=== PATIENT | female | born 1975 | race Caucasian/White ===

== ENCOUNTER 2017-02-10 15:07 | Outpatient (POV) | payer OTHER, SELFPAY | END 2017-02-10 16:20 | disposition home or self-care (01) | PROVIDERS: Visit Provider Podiatrist | DX: M72.2 Plantar fascial fibromatosis (principal); M76.62 Achilles tendinitis, left leg; M25.572 Pain in left ankle and joints of left foot | CPT/HCPCS: 99202 ==

== ENCOUNTER 2017-03-03 15:26 | Outpatient (POV) | payer OTHER, SELFPAY | END 2017-03-03 15:59 | disposition home or self-care (01) | PROVIDERS: Visit Provider Podiatrist | DX: M72.2 Plantar fascial fibromatosis (principal); M76.62 Achilles tendinitis, left leg | CPT/HCPCS: 20550; 99212; J1100; J3301 ==

== ENCOUNTER → 2017-06-15 07:02 | Outpatient (CLI) | payer OTHER, SELFPAY ==
[2017-06-15 08:21] LABS: Albumin Level 3.7 gm/dL (3.4-5.0); Anion Gap 11.8 mEq/L (5-15); Blood Urea Nitrogen 12 mg/dL (7-18); Calcium 8.9 mg/dL (8.5-10.1); Carbon Dioxide 29 mmol/L (21.0-32.0); Chloride 103 mmol/L (98-107); Creatinine,Serum 0.65 mg/dL (0.55-1.02); Estimated Glomerular Filt Rate 100 ml/min (>60); GFR (African American) 121 ML/MIN (>60); Glucose 96 mg/dL (74-106); Potassium 3.8 mmoL/L (3.5-5.1); Sodium 140 mmol/L (136-145)
[2017-06-15 08:47] LABS: Alanine Aminotransferase 45 U/L (12-78); Albumin/Globulin Ratio 1.1 (1.1-1.8); Alkaline Phosphatase 83 U/L (46-116); Aspartate Amino Transferase 27 U/L (15-37); Bilirubin,Total 0.2 mg/dL (0.2-1.0); Cholesterol 236 mg/dL (140-200); Free T4 (Free Thyroxine) 0.79 ng/dl (0.76-1.46); Globulin 3.5 gm/dl (1.3-3.2); HDL Cholesterol 78 mg/dL (29-89); LDL Cholesterol 142 mg/dL (0-130); Thyroid Stimulating Hormone 1.85 uIU/ml (0.358-3.740); Total Protein,Serum 7.2 gm/dL (6.4-8.2); Triglycerides 82 mg/dL (30-200); VLDL Cholesterol 16 mg/dL (0-40)
[2017-06-15 08:53] LABS: Basophils % 0.7 % (0.1-2.0); Eosinophils # 0.4 K/mm3 (0.0-0.4); Eosinophils % 8.1 % (0.1-12.0); Hematocrit 48.7 % (37.0-47.0); Lymphocytes # 0.8 K/mm3 (0.7-4.5); Mean Corpuscular HGB Conc 30.9 g/dL (31.8-35.4); Mean Corpuscular Volume 93.9 fl (81-99); Mean Platelet Volume 8.1 fl (7.4-10.4); Monocytes # 0.4 K/mm3 (0.1-1.0); Monocytes % 7.1 % (1.7-9.3); Neutrophils # 3.6 K/mm3 (1.8-7.8); Neutrophils % 68.1 % (37.0-80.0); Platelet Count 280 K/mm3 (142-424); Red Blood Count 5.19 M/mm3 (4.20-5.40); Red Cell Distribution Width 13.1 % (11.5-17.5); White Blood Count 5.2 K/mm3 (4.8-10.8)
[2017-06-15 10:02] LABS: Erythrocyte Sedimentation Rate 9 mm/hr (0-20)
[2017-06-16 15:40] LABS: Estradiol 93.9 pg/mL (.); FSH 8.6 mIU/mL (.); LH 3.8 mIU/mL (.); Vitamin B12 601 pg/mL (232-1245)
== END ==
PROVIDERS: Visit Provider Nurse Practitioner Family
DX: E03.9 Hypothyroidism, unspecified (principal); E78.5 Hyperlipidemia, unspecified; E53.8 Deficiency of other specified B group vitamins; E55.9 Vitamin D deficiency, unspecified; R53.81 Other malaise; M25.50 Pain in unspecified joint; R23.2 Flushing
CPT/HCPCS: 36415; 80053; 80061; 82607; 82652; 82670; 83001; 83002; 84439; 84443; 85025; 85651

== ENCOUNTER 2017-07-28 14:50 | Outpatient (CLI) | payer OTHER, SELFPAY ==
[2017-07-28 15:10] VITALS: BP 125/76; PULSE 87; RESP 18; TEMP 37.1; O2SAT 97
[2017-07-28 15:40] VITALS: BP 121/65; PULSE 84; RESP 18
[2017-07-28 16:00] VITALS: BP 125/76; PULSE 87; RESP 18
== END 2017-07-28 16:00 | disposition home or self-care (01) ==
PROVIDERS: PCP Internal Medicine Adolescent Medicine; Visit Provider Psychiatry & Neurology Clinical Neurophysiology
DX: G35 Multiple sclerosis (principal)
CPT/HCPCS: 96365

== ENCOUNTER 2017-07-29 13:05 | Outpatient (CLI) | payer OTHER, SELFPAY ==
[2017-07-29 13:48] VITALS: BP 135/79; PULSE 61; RESP 18
[2017-07-29 13:50] VITALS: BP 122/75; PULSE 57; RESP 18
[2017-07-29 14:20] VITALS: BP 114/67; PULSE 59; RESP 18
== END 2017-07-29 13:48 | disposition home or self-care (01) ==
LOC: INF 13:40
PROVIDERS: PCP Internal Medicine Adolescent Medicine; Visit Provider Psychiatry & Neurology Clinical Neurophysiology
DX: G35 Multiple sclerosis (principal)
CPT/HCPCS: 96365; 96375; J2405

== ENCOUNTER 2017-07-30 12:11 | Outpatient (CLI) | payer OTHER, SELFPAY ==
[2017-07-30 12:35] VITALS: BP 121/78; PULSE 66; RESP 18; TEMP 36.6; O2SAT 97
[2017-07-30 13:00] VITALS: BP 136/69; PULSE 57; RESP 18
[2017-07-30 13:20] VITALS: BP 140/77; PULSE 72; RESP 18
== END 2017-07-30 13:20 | disposition home or self-care (01) ==
LOC: INF 12:11
PROVIDERS: PCP Internal Medicine Adolescent Medicine; Visit Provider Psychiatry & Neurology Clinical Neurophysiology
DX: G35 Multiple sclerosis (principal)
CPT/HCPCS: 96365

== ENCOUNTER → 2018-02-15 16:52 | Outpatient (CLI) | payer OTHER, SELFPAY ==
[2018-02-15 18:12] LABS: Anion Gap 15.1 mEq/L (5-15); Blood Urea Nitrogen 13 mg/dL (7-18); Calcium 8.8 mg/dL (8.5-10.1); Carbon Dioxide 25 mmol/L (21.0-32.0); Chloride 104 mmol/L (98-107); Creatinine,Serum 0.78 mg/dL (0.55-1.02); Estimated Glomerular Filt Rate 81 ml/min (>60); GFR (African American) 98 ML/MIN (>60); Glucose 110 mg/dL (74-106); Potassium 4.1 mmoL/L (3.5-5.1); Sodium 140 mmol/L (136-145); Thyroid Stimulating Hormone 0.91 uIU/ml (0.358-3.740)
[2018-02-17 14:20] LABS: Vitamin B12 448 pg/mL (232-1245); Vitamin D 25 Hydroxy 37.6 ng/mL (30.0-100.0)
== END ==
PROVIDERS: Visit Provider Nurse Practitioner Family
DX: E03.9 Hypothyroidism, unspecified (principal); E53.8 Deficiency of other specified B group vitamins; E55.9 Vitamin D deficiency, unspecified
CPT/HCPCS: 36415; 80048; 82607; 82652; 84439; 84443

== ENCOUNTER 2018-11-18 15:25 | Outpatient (CLI) | payer OTHER, SELFPAY ==
[2018-11-18 15:52] VITALS: BP 140/81; PULSE 86; RESP 20; TEMP 36.8; O2SAT 99
[2018-11-18 16:22] VITALS: BP 137/84; PULSE 81; RESP 20; O2SAT 99
== END 2018-11-18 16:30 | disposition home or self-care (01) ==
LOC: INF 15:35
PROVIDERS: Visit Provider Psychiatry & Neurology Clinical Neurophysiology
DX: G35 Multiple sclerosis (principal)
CPT/HCPCS: 96365

== ENCOUNTER 2018-11-19 15:25 | Outpatient (CLI) | payer OTHER, SELFPAY ==
[2018-11-19 15:45] VITALS: BP 132/79; PULSE 93; RESP 20; O2SAT 99
[2018-11-19 16:20] VITALS: BP 137/86; PULSE 93; RESP 18
== END 2018-11-19 16:30 | disposition home or self-care (01) ==
LOC: INF 15:32
PROVIDERS: Visit Provider Psychiatry & Neurology Clinical Neurophysiology
DX: G35 Multiple sclerosis (principal)
CPT/HCPCS: 96365

== ENCOUNTER → 2018-11-20 09:28 | Outpatient (CLI) | payer OTHER, SELFPAY ==
[2018-11-20 09:55] VITALS: BP 145/85; PULSE 78; RESP 18; TEMP 36.9; O2SAT 98
[2018-11-20 10:49] VITALS: BP 145/80; PULSE 62; RESP 18; TEMP 36.9; O2SAT 98
== END ==
PROVIDERS: PCP Internal Medicine Adolescent Medicine; Visit Provider Psychiatry & Neurology Clinical Neurophysiology
DX: G35 Multiple sclerosis (principal)
CPT/HCPCS: 96365; G0463

== ENCOUNTER → 2019-08-25 11:57 | Outpatient (CLI) | payer OTHER, SELFPAY ==
[2019-08-25 12:27] LABS: Basophils # 0.1 K/mm3 (0-0.2); Basophils % 1.5 % (0.1-2.0); Eosinophils # 0.5 K/mm3 (0.0-0.4); Hematocrit 44.4 % (37.0-47.0); Hemoglobin 13.8 g/dL (12.2-16.2); Lymphocytes # 0.6 K/mm3 (0.7-4.5); Lymphocytes % 10.5 % (10-50); Mean Corpuscular HGB Conc 31.1 g/dL (31.8-35.4); Mean Corpuscular Hemoglobin 30.1 pg (27.0-31.2); Mean Corpuscular Volume 96.8 fl (81-99); Mean Platelet Volume 7.4 fl (7.4-10.4); Monocytes # 0.4 K/mm3 (0.1-1.0); Monocytes % 6.3 % (1.7-9.3); Neutrophils # 4.1 K/mm3 (1.8-7.8); Neutrophils % 72.8 % (37.0-80.0); Platelet Count 275 K/mm3 (142-424); Red Blood Count 4.59 M/mm3 (4.20-5.40); Red Cell Distribution Width 15.1 % (11.5-17.5); White Blood Count 5.7 K/mm3 (4.8-10.8)
[2019-08-25 13:33] LABS: Alanine Aminotransferase 42 U/L (12-78); Albumin Level 4.2 g/dl (3.5-5.0); Albumin/Globulin Ratio 1.6 (1.1-1.8); Alkaline Phosphatase 74 U/L (38-126); Anion Gap 12.1 mEq/L (5-15); Aspartate Amino Transferase 34 U/L (14-36); Bilirubin,Total 0.5 mg/dl (0.2-1.3); Blood Urea Nitrogen 13 mg/dl (7-17); Calcium 9.6 mg/dl (8.4-10.2); Carbon Dioxide 25 mmol/L (22.0-30.0); Chloride 104 mmol/L (98-107); Chol/HDL Ratio 3.3 (1-3.5); Cholesterol 238 mg/dl (140-200); Estimated Glomerular Filt Rate 78 ml/min (>60); GFR (African American) 94 ML/MIN (>60); Globulin 2.6 g/dL (1.3-3.2); Glucose 100 mg/dl (74-100); HDL Cholesterol 72 mg/dl (40-60); Potassium 4.1 mmoL/L (3.5-5.1); Sodium 137 mmol/L (136-145); Total Protein,Serum 6.8 g/dl (6.3-8.2); Triglycerides 124 mg/dl (30-150); VLDL Cholesterol 25 mg/dL (0-40)
[2019-08-25 13:43] LABS: Direct LDL Cholesterol 146.44 mg/dL (100-129)
[2019-08-25 14:03] LABS: Thyroid Stimulating Hormone 1.69 uIU/mL (0.465-4.68)
== END ==
PROVIDERS: Visit Provider Internal Medicine Adolescent Medicine
DX: E78.5 Hyperlipidemia, unspecified (principal); E03.9 Hypothyroidism, unspecified; G35 Multiple sclerosis
CPT/HCPCS: 36415; 80053; 80061; 84443; 85025

== ENCOUNTER → 2019-11-11 09:00 | Outpatient (CLI) | payer OTHER, SELFPAY ==
--- NOTE | 2019-11-11 09:13 | MM_ITS ---
PROCEDURE: MM DIG SCREENING MAMM BI W/CAD Digital Breast Tomosynthesis Included CLINICAL INDICATION: <inf_study_reason> There is no personal or family history of breast cancer. COMPARISON: MG DMSB DIG MAMM-SCREEN JAIRO from 09/03/2012 MG DMSB DIG MAMM-SCREEN JAIRO from 11/07/2014 MG DMSB DIG MAMM-SCREEN JAIRO from 12/19/2015 TECHNIQUE: Standard CC and MLO images and 3D Tomosynthesis was obtained. R2 CAD reviewed. FINDINGS: Composed primarily of fat with minimal scattered fibroglandular densities in each breast. There is stable tiny nodular densities upper outer quadrant right breast. There is no new or suspicious lesion in either breast and no suspicious microcalcifications. IMPRESSION: Fatty type breast parenchyma with no suspicious lesions seen BI-RAD Category: 2 Benign Finding(s) FOLLOW-UP: 1YR 1 Year Follow-up (A letter has been sent to the patient regarding results of the study.) Dictated by: Dr. Elliot Grant MD 11/14/2019 08:54 Dr. Elliot Grant MD in [place] 11/14/2019 08:54
== END ==
PROVIDERS: PCP Internal Medicine Adolescent Medicine; Visit Provider Internal Medicine Adolescent Medicine
DX: Z12.31 Encounter for screening mammogram for malignant neoplasm of breast (principal)
CPT/HCPCS: 77063; 77067

== ENCOUNTER → 2019-12-09 15:49 | Outpatient (CLI) | payer OTHER, SELFPAY ==
--- NOTE | 2019-12-09 15:57 | XR_ITS ---
PROCEDURE: XR FOOT LT MIN 3V CLINICAL INDICATION: ACUTE LEFT ANKLE PAIN Pain COMPARISON: No exams were available for comparison FINDINGS: No fracture or dislocation. No lytic or blastic change. There is normal mineralization. The joint spaces are well-preserved. No significant degenerative/arthritic changes. No erosive changes evident. Other findings:There is a small osteophyte along the medial aspect and proximal aspect of the distal phalanx of the great toe projecting distally. Small calcaneal spurs present. IMPRESSION: Osteophyte of the great toe otherwise negative Dictated by: Ismael Sung MD 12/09/2019 16:13 Ismael Sung MD in [place] 12/09/2019 16:13
[2019-12-09 17:43] LABS: Coronavirus 19 IgG Antibody Negative (Negative); Coronavirus 19 IgM Antibody Negative (Negative)
== END ==
PROVIDERS: Internal Medicine Gastroenterology; PCP Internal Medicine Adolescent Medicine; Visit Provider Internal Medicine Adolescent Medicine
DX: Z01.89 Encounter for other specified special examinations (principal); Z13.810 Encounter for screening for upper gastrointestinal disorder; M79.672 Pain in left foot
CPT/HCPCS: 36415; 73630; 86328

== ENCOUNTER 2019-12-12 10:10 | Day surgery (SDC) | payer OTHER, SELFPAY ==
[2019-12-06 14:36] VITALS: BMI 36.0
[2019-12-12] VITALS (7 sets, daily range): BP systolic 103–119; BP diastolic 56–83; PULSE 53–64; RESP 18; TEMP 36.4–36.7; O2SAT 59–100
--- NOTE | 2019-12-12 10:52 | HMH.ANESCL ---
[facility] Anesthesia Checklist - Patient Identification Patient Identification: Arm Band - Structural Data Admitted From: Home Planned Operative Procedure/s: colonoscopy Consent for Planned Operative Procedure(s) Verified: Yes Verified Documents: Surgical Consent, History and Physical - NPO Status Verified Time NPO: 00:00 - Additional verifications Anesthesia Reactions: No - Airway Assessment C-Spine Mobility Assessed: Yes (mp2) TMJ Mobility Assessed: Yes Dentition: Good Dentition - Neurological Assessment Level of Consciousness: Awake, Alert - Anesthesia Plan Anesthesia Risk discussed: Yes Anesthesia Plan: Verified ASA Class: II Anesthesia Type: MAC [facility] History I have reviewed the patient's past medical history: Yes Medical History: Reports:: Anxiety, Palpitations Denies:: Cancer, Diabetes Mellitus Type 1, Diabetes Mellitus Type 2, Internal Pacemaker, MRSA, Seizures *Have you ever received a pneumonia vaccine?: No *Have you received a flu vaccine this season?: No Other Medical History: Reports: Fibromyalgia, Hypothyroidism, Thyroid Disease Anesthesia experience/problems:: nac Other Surgeries: Yes: Cholecystectomy, , Hysterectomy-Partial. No: Pacemaker Amputation: No Fractures: No - *Social History Last grade of school completed: Advanced degree Smoking Status: Current every day smoker Tobacco Type: cigarettes # Packs/Day (cigarettes): 1 Alcohol Intake: current Alcohol Intake Frequency:: holidays/special occasions only Substance Use Type: denies use *Occupational Status:: employed, disabled Housing: house Household Members: family *Travel in the last 8 weeks: None Family Hx:: Anemia, Bleeding Disorder, Cancer, Diabetes, Heart Attack, Hyperlipidemia, Hypertension, Kidney Disease, Stroke, Thyroid Disorder, Tuberculosis
--- NOTE | 2019-12-12 12:33 | P.PCN_ITS ---
[facility] Procedure Note Procedure Note:: Colonoscopy Procedure Report: Colonoscopy with cold snare polypectomy Endoscopist: Zhang De Leon II, MD Referring physician: Bird Leach MD Date of Procedure: December 12, 2019 Equipment: Olympus 180 variable stiffness pediatric colonoscope Sedation: MAC sedation Indication: Mrs. Castro is a 44-year-old female who is here for high risk screening colonoscopy. Her father had colon cancer at the age of 48. Her last colonoscopy was September 2011 and she had a single benign polyp removed. The maryjane gregg does have a long history of irritable bowel syndrome (alternating constipation and diarrhea). She reports no abdominal pain or weight loss. She did have possibly hemorrhoidal bleeding a couple of months ago. Procedure: Prior to the procedure, a history and physical exam was performed, and patient's medications and allergies were reviewed. The risks, benefits and alternatives of the sedation and procedure were discussed with the patient. All questions were answered and informed consent was obtained. The patient was brought to the procedure room. Patient identification and proposed procedure were verified by the physician and the nurse. The patient was placed in a left lateral decubitus position and the scope was passed under direct vision. Throughout the procedure, the patient's blood pressure, pulse, and oxygen saturations were monitored continuously. The colonoscopy was accomplished without difficulty. The patient tolerated the procedure well. Findings: On digital rectal examination there was normal rectal tone. There were no external hemorrhoids. The colonoscope was introduced through the anal canal to the rectum and advanced to the cecum. The ileocecal valve and appendiceal orifice were identified. The scope was advanced a short distance into the ileum which appeared grossly normal. The scope was then withdrawn into the colon. The cecum, ascending and transverse colon were normal. There was a diminutive 3 to 4 mm polyp in the descending colon removed via cold snare polypectomy. The remainder of the sigmoid and rectum were grossly normal. There were no other mucosal abnormalities identified. Upon retroflexion within the rectum there were grade 1 internal hemorrhoids.The preparation was excellent throughout with [place] Preparation Score of 9. The cecal time was 11 minutes. Impression: 1. Diminutive descending colon polyp 2. Grade 1 internal hemorrhoids Plan: I will follow up the polyp pathology and recommend repeat colonoscopy again in 5 years based upon the patient's family history and present polyp histology. I would encourage dietary measures, probiotic and bulk fiber supplementation on a long-term daily maintenance basis.
== END 2019-12-12 13:15 | disposition home or self-care (01) ==
LOC: OUTP 10:11
PROVIDERS: PCP Internal Medicine Adolescent Medicine; Visit Provider Internal Medicine Gastroenterology
PROC: 0DJD8ZZ Inspection of Lower Intestinal Tract, Via Natural or Artificial Opening Endoscopic (ICD-10-PCS; CPT 45378; principal; 2019-12-12 11:00)
DX: Z12.11 Encounter for screening for malignant neoplasm of colon (principal); Z80.0 Family history of malignant neoplasm of digestive organs; Z86.010 Personal history of colon polyps; K63.5 Polyp of colon; K64.0 First degree hemorrhoids; F41.9 Anxiety disorder, unspecified; R00.2 Palpitations; M79.7 Fibromyalgia; E03.9 Hypothyroidism, unspecified; Z90.49 Acquired absence of other specified parts of digestive tract; Z90.711 Acquired absence of uterus with remaining cervical stump; Z72.0 Tobacco use
CPT/HCPCS: 45385

== ENCOUNTER 2020-01-20 13:40 | Outpatient (CLI) | payer OTHER, SELFPAY ==
[2020-01-20 14:23] VITALS: BP 129/77; PULSE 78; RESP 18; O2SAT 100
[2020-01-20 15:00] VITALS: BP 126/84; PULSE 79; RESP 18
== END 2020-01-20 15:00 | disposition home or self-care (01) ==
LOC: INF 13:45
PROVIDERS: PCP Internal Medicine Adolescent Medicine; Visit Provider Psychiatry & Neurology Neurology
DX: G35 Multiple sclerosis (principal)
CPT/HCPCS: 96365; J2405

== ENCOUNTER 2020-01-21 13:36 | Outpatient (CLI) | payer OTHER, SELFPAY ==
[2020-01-21 14:12] VITALS: BP 143/81; PULSE 79; RESP 18; TEMP 36.8; O2SAT 99
== END 2020-01-21 15:43 | disposition home or self-care (01) ==
LOC: INF 13:37
PROVIDERS: PCP Internal Medicine Adolescent Medicine; Visit Provider Internal Medicine Nephrology
DX: G35 Multiple sclerosis (principal)
CPT/HCPCS: 96365; 96374; 96375; J2405

== ENCOUNTER 2020-01-22 13:01 | Outpatient (CLI) | payer OTHER, SELFPAY ==
[2020-01-22 13:25] VITALS: BP 123/67; PULSE 71; RESP 16; O2SAT 99
== END 2020-01-22 14:25 | disposition home or self-care (01) ==
LOC: INF 13:01
PROVIDERS: PCP Internal Medicine Adolescent Medicine; Visit Provider Internal Medicine Nephrology
DX: G35 Multiple sclerosis (principal)
CPT/HCPCS: 96365; 96366; 96372; 96374; 96375; J2405

== ENCOUNTER → 2020-02-10 13:15 | Outpatient (CLI) | payer OTHER, SELFPAY ==
--- NOTE | 2020-02-10 13:21 | XR_ITS ---
PROCEDURE: XR FACIAL BONES MIN 3V CLINICAL INDICATION: FACIAL PAIN,ACUTE, FALL,INITIAL ENCOUNTER COMPARISON: No exams were available for comparison FINDINGS: No fracture or dislocation. No lytic or blastic change. There is normal mineralization. Nasal septum is in the midline. The joint spaces are well-preserved. No significant degenerative/arthritic changes. No erosive changes evident. The paranasal sinuses appear grossly clear. Other findings:None. IMPRESSION: No acute findings. Dictated by: Dr. Elliot Grant MD 02/10/2020 14:14 Dr. Elliot Grant MD in [place] 02/10/2020 14:14
--- NOTE | 2020-02-10 13:22 | XR_ITS ---
PROCEDURE: XR RIBS LT MIN 3V W CXR1V CLINICAL INDICATION: RIB PAIN ON LT SIDE, FALL, INITIAL ENCOUNTER COMPARISON: CR CXR CHEST(2 VIEWS-NOT PORTABLE) from 01/15/2017 FINDINGS: The lung [place] are well expanded and appear clear of infiltrate. Cardiac size is borderline, there is no pulmonary congestion and there is no pleural fluid. All of left ribs are visualized appear intact with no definite fracture seen. There is no pneumothorax. There is serpentine scoliotic curvature of the spine with mild dextro scoliotic curvature of the mid lower thoracic spine and slightly more pronounced levo scoliotic curvature of the lumbar spine which shows a mild rotatory component. IMPRESSION: No acute findings. Dictated by: Dr. Elliot Grant MD 02/10/2020 14:10 Dr. Elliot Grant MD in [place] 02/10/2020 14:10
== END ==
PROVIDERS: PCP Internal Medicine Adolescent Medicine; Visit Provider Nurse Practitioner Family
DX: R51.9 Headache, unspecified (principal); R07.81 Pleurodynia; W19.XXXA Unspecified fall, initial encounter
CPT/HCPCS: 70150; 71101

== ENCOUNTER → 2020-05-19 10:34 | Outpatient (CLI) | payer OTHER, SELFPAY ==
[2020-05-19 11:21] LABS: Basophils % 0.5 % (0.1-2.0); Eosinophils # 0.4 K/mm3 (0.0-0.4); Eosinophils % 7.7 % (0.1-12.0); Hematocrit 43.1 % (37.0-47.0); Hemoglobin 13.5 g/dL (12.2-16.2); Mean Corpuscular HGB Conc 31.4 g/dL (31.8-35.4); Mean Corpuscular Hemoglobin 30.8 pg (27.0-31.2); Mean Corpuscular Volume 97.9 fl (81-99); Mean Platelet Volume 7.8 fl (7.4-10.4); Monocytes # 0.3 K/mm3 (0.1-1.0); Monocytes % 6.6 % (1.7-9.3); Neutrophils # 3.1 K/mm3 (1.8-7.8); Neutrophils % 65.1 % (37.0-80.0); Platelet Count 237 K/mm3 (142-424); Red Blood Count 4.41 M/mm3 (4.20-5.40); Red Cell Distribution Width 13.6 % (11.5-17.5); White Blood Count 4.8 K/mm3 (4.8-10.8)
[2020-05-19 11:56] LABS: Alanine Aminotransferase 23 U/L (12-78); Albumin Level 4.2 g/dl (3.5-5.0); Albumin/Globulin Ratio 1.8 (1.1-1.8); Alkaline Phosphatase 73 U/L (38-126); Anion Gap 10.5 mEq/L (5-15); Aspartate Amino Transferase 24 U/L (14-36); Bilirubin,Total 0.5 mg/dl (0.2-1.3); Blood Urea Nitrogen 17 mg/dl (7-17); Calcium 9.7 mg/dl (8.4-10.2); Carbon Dioxide 25 mmol/L (22.0-30.0); Chloride 112 mmol/L (98-107); Chol/HDL Ratio 4.7 (1-3.5); Cholesterol 242 mg/dl (140-200); Estimated Glomerular Filt Rate 78 ml/min (>60); GFR (African American) 94 ML/MIN (>60); Globulin 2.4 g/dL (1.3-3.2); Glucose 95 mg/dl (74-100); HDL Cholesterol 52 mg/dl (40-60); Potassium 4.5 mmoL/L (3.5-5.1); Sodium 143 mmol/L (136-145); Total Protein,Serum 6.6 g/dl (6.3-8.2); Triglycerides 100 mg/dl (30-150); VLDL Cholesterol 20 mg/dL (0-40)
[2020-05-19 12:07] LABS: Direct LDL Cholesterol 150.86 mg/dL (100-129)
[2020-05-19 12:12] LABS: 25-OH Vitamin D, Total 85.6 ng/mL (30-100)
[2020-05-19 12:27] LABS: Thyroid Stimulating Hormone 1.52 uIU/mL (0.465-4.68)
[2020-05-19 12:45] LABS: Vitamin B12 271 pg/mL (239-931)
== END ==
PROVIDERS: Visit Provider Nurse Practitioner Family
DX: Z00.00 Encounter for general adult medical examination without abnormal findings (principal); E78.5 Hyperlipidemia, unspecified; E03.9 Hypothyroidism, unspecified; E55.9 Vitamin D deficiency, unspecified; R20.2 Paresthesia of skin
CPT/HCPCS: 36415; 80053; 80061; 82306; 82607; 84443; 85025

== ENCOUNTER → 2020-06-01 11:07 | Outpatient (CLI) | payer OTHER, SELFPAY ==
--- NOTE | 2020-06-01 11:18 | XR_ITS ---
PROCEDURE: XR CHEST 2V CLINICAL HISTORY: PNEUMONIA COMPARISON: CR CXR CHEST(2 VIEWS-NOT PORTABLE) from 01/15/2017 DX XR RIBS LT MIN 3V W CXR1V from 02/10/2020 FINDINGS: The cardiomediastinal silhouette and pulmonary vascularity are within normal limits. Lungs are clear. Thoracic scoliosis convex right with lumbar scoliosis convex left with kyphosis of the thoracic IMPRESSION: No acute findings. Dictated by: Ismael Sung MD 06/01/2020 15:03 Ismael Sung MD in [place] 06/01/2020 15:03
== END ==
PROVIDERS: PCP Internal Medicine Adolescent Medicine; Visit Provider Internal Medicine Adolescent Medicine
DX: J18.9 Pneumonia, unspecified organism (principal)
CPT/HCPCS: 71046

== ENCOUNTER → 2020-09-22 11:20 | Outpatient (CLI) | payer OTHER, SELFPAY ==
[2020-09-22 11:48] LABS: Basophils % 0.8 % (0.1-2.0); Eosinophils # 0.6 K/mm3 (0.0-0.4); Eosinophils % 9.7 % (0.1-12.0); Hematocrit 42.5 % (37.0-47.0); Hemoglobin 13.7 g/dL (12.2-16.2); Lymphocytes # 1.3 K/mm3 (0.7-4.5); Lymphocytes % 23.3 % (10-50); Mean Corpuscular HGB Conc 32.3 g/dL (31.8-35.4); Mean Corpuscular Hemoglobin 30.1 pg (27.0-31.2); Mean Corpuscular Volume 93.2 fl (81-99); Mean Platelet Volume 7.8 fl (7.4-10.4); Monocytes # 0.5 K/mm3 (0.1-1.0); Neutrophils # 3.3 K/mm3 (1.8-7.8); Neutrophils % 58.3 % (37.0-80.0); Platelet Count 269 K/mm3 (142-424); Red Blood Count 4.56 M/mm3 (4.20-5.40); Red Cell Distribution Width 13.3 % (11.5-17.5); White Blood Count 5.7 K/mm3 (4.8-10.8)
[2020-09-22 13:04] LABS: Alanine Aminotransferase 48 U/L (12-78); Albumin Level 3.9 g/dl (3.5-5.0); Albumin/Globulin Ratio 1.6 (1.1-1.8); Alkaline Phosphatase 65 U/L (38-126); Anion Gap 9.9 mEq/L (5-15); Aspartate Amino Transferase 33 U/L (14-36); Bilirubin,Total 0.4 mg/dl (0.2-1.3); Blood Urea Nitrogen 15 mg/dl (7-17); Calcium 9.3 mg/dl (8.4-10.2); Carbon Dioxide 26 mmol/L (22.0-30.0); Chloride 108 mmol/L (98-107); Chol/HDL Ratio 4.3 (1-3.5); Cholesterol 218 mg/dl (140-200); Estimated Glomerular Filt Rate 108 ml/min (>60); GFR (African American) 130 ML/MIN (>60); Globulin 2.5 g/dL (1.3-3.2); Glucose 86 mg/dl (74-100); HDL Cholesterol 51 mg/dl (40-60); Magnesium 1.9 mg/dl (1.6-2.3); Potassium 4.9 mmoL/L (3.5-5.1); Sodium 139 mmol/L (136-145); Total Protein,Serum 6.4 g/dl (6.3-8.2); Triglycerides 170 mg/dl (30-150); VLDL Cholesterol 34 mg/dL (0-40)
[2020-09-22 13:13] LABS: NT Pro Brain Natriuretic Pep. 369 pg/mL (0-125)
[2020-09-22 13:15] LABS: Direct LDL Cholesterol 119.53 mg/dL (100-129)
[2020-09-22 13:22] LABS: 25-OH Vitamin D, Total 84.9 ng/mL (30-100); Free Thyroxine Index 4.9 ug/dL (5.93-13.13); T4 (Thyroxine) 14.3 ug/dl (5.53-11.0); Triiodothryronine (T3) Uptake 34 % (23.5-40.5)
[2020-09-22 13:35] LABS: Thyroid Stimulating Hormone < 0.02 uIU/mL (0.465-4.68)
[2020-09-22 13:53] LABS: Vitamin B12 958 pg/mL (239-931)
== END ==
PROVIDERS: Visit Provider Internal Medicine Adolescent Medicine
DX: E78.5 Hyperlipidemia, unspecified (principal); R60.9 Edema, unspecified; E03.9 Hypothyroidism, unspecified; E53.8 Deficiency of other specified B group vitamins; E55.9 Vitamin D deficiency, unspecified
CPT/HCPCS: 80053; 80061; 82306; 82607; 83735; 83880; 84436; 84443; 84479; 85025

== ENCOUNTER → 2020-12-01 10:18 | Outpatient (CLI) | payer OTHER, SELFPAY ==
[2020-12-01 11:00] LABS: Basophils % 0.4 % (0.1-2.0); Eosinophils # 0.6 K/mm3 (0.0-0.4); Eosinophils % 14.1 % (0.1-12.0); Hematocrit 41.4 % (37.0-47.0); Hemoglobin 13.1 g/dL (12.2-16.2); Lymphocytes # 1.1 K/mm3 (0.7-4.5); Lymphocytes % 24.9 % (10-50); Mean Corpuscular HGB Conc 31.7 g/dL (31.8-35.4); Mean Corpuscular Hemoglobin 29.3 pg (27.0-31.2); Mean Corpuscular Volume 92.6 fl (81-99); Mean Platelet Volume 7.9 fl (7.4-10.4); Monocytes # 0.3 K/mm3 (0.1-1.0); Monocytes % 6.8 % (1.7-9.3); Neutrophils # 2.4 K/mm3 (1.8-7.8); Neutrophils % 53.8 % (37.0-80.0); Platelet Count 233 K/mm3 (142-424); Red Blood Count 4.47 M/mm3 (4.20-5.40); Red Cell Distribution Width 11.7 % (11.5-17.5); White Blood Count 4.4 K/mm3 (4.8-10.8)
[2020-12-01 11:19] LABS: Hemoglobin A1C 5.7 % (4.0-6.0)
[2020-12-01 12:30] LABS: Free Thyroxine Index 7.7 ug/dL (5.93-13.13); T4 (Thyroxine) 17.6 ug/dl (5.53-11.0); Triiodothryronine (T3) Uptake 44 % (23.5-40.5)
[2020-12-01 12:44] LABS: Thyroid Stimulating Hormone < 0.02 uIU/mL (0.465-4.68)
[2020-12-01 13:13] LABS: 25-OH Vitamin D, Total 85.1 ng/mL (30-100)
[2020-12-01 14:02] LABS: Chloride 111 mmol/L (98-107); Potassium 4.1 mmoL/L (3.5-5.1); Sodium 140 mmol/L (136-145)
[2020-12-01 14:04] LABS: Alanine Aminotransferase 45 U/L (12-78); Aspartate Amino Transferase 33 U/L (14-36); Blood Urea Nitrogen 15 mg/dl (7-17); Estimated Glomerular Filt Rate 108 ml/min (>60); GFR (African American) 130 ML/MIN (>60)
[2020-12-01 14:05] LABS: Albumin Level 3.5 g/dl (3.5-5.0); Albumin/Globulin Ratio 1.4 (1.1-1.8); Alkaline Phosphatase 87 U/L (38-126); Anion Gap 12.1 mEq/L (5-15); Bilirubin,Total 0.3 mg/dl (0.2-1.3); Calcium 9.5 mg/dl (8.4-10.2); Carbon Dioxide 21 mmol/L (22.0-30.0); Chol/HDL Ratio 3.9 (1-3.5); Cholesterol 196 mg/dl (140-200); Globulin 2.5 g/dL (1.3-3.2); Glucose 102 mg/dl (74-100); HDL Cholesterol 50 mg/dl (40-60); Triglycerides 141 mg/dl (30-150); VLDL Cholesterol 28 mg/dL (0-40)
[2020-12-01 14:16] LABS: Direct LDL Cholesterol 105.33 mg/dL (100-129)
[2020-12-01 15:17] LABS: Vitamin B12 572 pg/mL (239-931)
== END ==
PROVIDERS: Visit Provider Internal Medicine Adolescent Medicine
DX: E03.9 Hypothyroidism, unspecified (principal); E53.8 Deficiency of other specified B group vitamins; E78.5 Hyperlipidemia, unspecified
CPT/HCPCS: 36415; 80053; 80061; 82306; 82607; 83036; 84436; 84443; 84479; 85025

== ENCOUNTER 2020-12-26 15:09 | Outpatient (CLI) | payer OTHER, SELFPAY ==
[2020-12-26 15:40] VITALS: BP 140/75; PULSE 79; RESP 18; O2SAT 95
[2020-12-26 16:25] VITALS: BP 135/76; PULSE 86; RESP 18
== END 2020-12-26 16:25 | disposition home or self-care (01) ==
LOC: INF 15:11
PROVIDERS: PCP Internal Medicine Adolescent Medicine; Visit Provider Psychiatry & Neurology Clinical Neurophysiology
DX: G35 Multiple sclerosis (principal)
CPT/HCPCS: 96365; J2405

== ENCOUNTER 2020-12-27 15:17 | Outpatient (CLI) | payer OTHER, SELFPAY ==
[2020-12-27 15:35] VITALS: BP 133/100; PULSE 97; RESP 18; O2SAT 97
[2020-12-27 16:25] VITALS: BP 142/84; PULSE 102; RESP 18
== END 2020-12-27 16:25 | disposition home or self-care (01) ==
LOC: INF 15:17
PROVIDERS: PCP Internal Medicine Adolescent Medicine; Visit Provider Psychiatry & Neurology Clinical Neurophysiology
DX: G35 Multiple sclerosis (principal)
CPT/HCPCS: 96365; J2405

== ENCOUNTER 2020-12-28 15:52 | Outpatient (CLI) | payer OTHER, SELFPAY ==
[2020-12-28 16:07] VITALS: BP 128/78; PULSE 77; RESP 18; O2SAT 100
[2020-12-28 17:00] VITALS: BP 140/83; PULSE 78; RESP 18
== END 2020-12-28 16:45 | disposition home or self-care (01) ==
LOC: INF 15:52
PROVIDERS: PCP Internal Medicine Adolescent Medicine; Visit Provider Family Medicine
DX: G35 Multiple sclerosis (principal)
CPT/HCPCS: 96365; J2405

== ENCOUNTER → 2021-02-20 11:08 | Outpatient (CLI) | payer OTHER, SELFPAY ==
[2021-02-20 13:25] LABS: Thyroid Stimulating Hormone < 0.02 uIU/mL (0.465-4.68)
[2021-02-21 17:15] LABS: Free Thyroxine Index 2.6 ug/dL (5.93-13.13); Triiodothryronine (T3) Uptake 29 % (23.5-40.5)
[2021-02-21 17:28] LABS: Thyroid Stimulating Hormone < 0.02 uIU/mL (0.465-4.68)
== END ==
PROVIDERS: Visit Provider Internal Medicine Adolescent Medicine
DX: Z79.899 Other long term (current) drug therapy (principal)
CPT/HCPCS: 36415; 84436; 84443; 84479

== ENCOUNTER → 2021-02-23 10:57 | Outpatient (CLI) | payer OTHER, SELFPAY ==
[2021-02-23 15:04] LABS: Free Thyroxine Index 2.7 ug/dL (5.93-13.13); T4 (Thyroxine) 9.7 ug/dl (5.53-11.0); Triiodothryronine (T3) Uptake 28 % (23.5-40.5)
[2021-02-23 15:17] LABS: Thyroid Stimulating Hormone < 0.02 uIU/mL (0.465-4.68)
== END ==
PROVIDERS: Visit Provider Internal Medicine Adolescent Medicine
DX: E05.90 Thyrotoxicosis, unspecified without thyrotoxic crisis or storm (principal)
CPT/HCPCS: 36415; 84436; 84443; 84479

== ENCOUNTER 2021-03-29 16:43 | Outpatient (RCR) | payer OTHER, SELFPAY | END 2021-03-29 17:21 | disposition home or self-care (01) | LOC: PT 16:43 | PROVIDERS: Visit Provider Internal Medicine Adolescent Medicine | DX: M84.374A Stress fracture, right foot, initial encounter for fracture (principal) | CPT/HCPCS: 97760 ==

== ENCOUNTER → 2022-03-22 11:41 | Outpatient (CLI) | payer BC, SELFPAY ==
[2022-03-22 14:05] LABS: Alanine Aminotransferase 32 U/L (12-78); Albumin Level 3.8 g/dl (3.5-5.0); Albumin/Globulin Ratio 1.7 (1.1-1.8); Alkaline Phosphatase 149 U/L (38-126); Anion Gap 8.4 mEq/L (5-15); Aspartate Amino Transferase 25 U/L (14-36); Bilirubin,Total 0.3 mg/dl (0.2-1.3); Blood Urea Nitrogen 16 mg/dl (7-17); Calcium 8.7 mg/dl (8.4-10.2); Carbon Dioxide 27 mmol/L (22.0-30.0); Chloride 109 mmol/L (98-107); Estimated Glomerular Filt Rate 77 ml/min (>60); GFR (African American) 93 ML/MIN (>60); Globulin 2.3 g/dL (1.3-3.2); Glucose 88 mg/dl (74-100); Potassium 4.4 mmoL/L (3.5-5.1); Sodium 140 mmol/L (136-145); Total Protein,Serum 6.1 g/dl (6.3-8.2)
[2022-03-22 14:18] LABS: Basophils # 0.1 K/mm3 (0-0.2); Eosinophils # 0.4 K/mm3 (0.0-0.4); Eosinophils % 6.3 % (0.1-12.0); Hemoglobin 13.2 g/dL (12.2-16.2); Lymphocytes % 15.8 % (10-50); Mean Corpuscular HGB Conc 31.5 g/dL (31.8-35.4); Mean Corpuscular Hemoglobin 28.6 pg (27.0-31.2); Mean Corpuscular Volume 90.9 fl (81-99); Mean Platelet Volume 8.8 fl (7.4-10.4); Monocytes # 0.5 K/mm3 (0.1-1.0); Monocytes % 7.5 % (1.7-9.3); Neutrophils # 4.3 K/mm3 (1.8-7.8); Neutrophils % 69.5 % (37.0-80.0); Platelet Count 309 K/mm3 (142-424); Red Blood Count 4.62 M/mm3 (4.20-5.40); Red Cell Distribution Width 14.3 % (11.5-17.5); White Blood Count 6.2 K/mm3 (4.8-10.8)
[2022-03-22 14:20] LABS: 25-OH Vitamin D, Total 51.2 ng/mL (30-100)
[2022-03-22 14:21] LABS: Free T4 (Free Thyroxine) 1.25 ng/dl (0.78-2.19)
[2022-03-22 14:37] LABS: Thyroid Stimulating Hormone < 0.02 uIU/mL (0.465-4.68)
[2022-03-22 14:55] LABS: Vitamin B12 403 pg/mL (239-931)
[2022-03-23 11:33] LABS: Thyroid Peroxidase Antibodies 276 IU/mL (0-34); Triiodothyronine (T3) Free 3.8 pg/mL (2.0-4.4)
== END ==
PROVIDERS: PCP Nurse Practitioner Family; Visit Provider Nurse Practitioner Family
DX: R94.6 Abnormal results of thyroid function studies (principal); E53.8 Deficiency of other specified B group vitamins; E55.9 Vitamin D deficiency, unspecified
CPT/HCPCS: 36415; 80053; 82306; 82607; 84439; 84443; 84481; 85025; 86376

== ENCOUNTER 2023-12-10 13:33 | Outpatient (CLI) | payer OTHER, SELFPAY ==
[2023-12-10 14:11] LABS: Hemoglobin A1C 5.7 % (4.0-6.0)
[2023-12-10 14:19] LABS: Basophils # 0.1 K/mm3 (0-0.2); Basophils % 0.8 % (0.1-2.0); Eosinophils # 0.3 K/mm3 (0.0-0.4); Eosinophils % 4.4 % (0.1-12.0); Hematocrit 44.3 % (37.0-47.0); Hemoglobin 13.6 g/dL (12.2-16.2); Lymphocytes # 1.1 K/mm3 (0.7-4.5); Lymphocytes % 15.8 % (10-50); Mean Corpuscular HGB Conc 30.7 g/dL (31.8-35.4); Mean Corpuscular Volume 100.9 fl (81-99); Mean Platelet Volume 8.6 fl (7.4-10.4); Monocytes # 0.4 K/mm3 (0.1-1.0); Platelet Count 296 K/mm3 (142-424); Red Blood Count 4.39 M/mm3 (4.20-5.40); Red Cell Distribution Width 14.1 % (11.5-17.5); White Blood Count 6.9 K/mm3 (4.8-10.8)
[2023-12-10 14:39] LABS: Alanine Aminotransferase 31 U/L (12-78); Albumin/Globulin Ratio 1.9 (1.1-1.8); Alkaline Phosphatase 76 U/L (38-126); Anion Gap 5.7 mEq/L (5-15); Aspartate Amino Transferase 29 U/L (14-36); Bilirubin,Total 0.6 mg/dl (0.2-1.3); Blood Urea Nitrogen 14 mg/dl (7-17); Calcium 8.5 mg/dl (8.4-10.2); Carbon Dioxide 24 mmol/L (22.0-30.0); Chloride 112 mmol/L (98-107); Cholesterol 230 mg/dl (140-200); Estimated Glomerular Filt Rate 76 ml/min (>60); GFR (African American) 92 ML/MIN (>60); Globulin 2.1 g/dL (1.3-3.2); Glucose 81 mg/dl (74-100); HDL Cholesterol 58 mg/dl (40-60); Potassium 3.7 mmoL/L (3.5-5.1); Sodium 138 mmol/L (136-145); Total Protein,Serum 6.1 g/dl (6.3-8.2); Triglycerides 120 mg/dl (30-150); VLDL Cholesterol 24 mg/dL (0-40)
[2023-12-10 14:50] LABS: C-Reactive Protein 3.3 mg/L (0-4); Direct LDL Cholesterol 128.94 mg/dL (100-129)
[2023-12-10 14:55] LABS: 25-OH Vitamin D, Total 87.7 ng/mL (30-100)
[2023-12-10 15:10] LABS: Thyroid Stimulating Hormone 2.03 uIU/mL (0.465-4.68)
[2023-12-10 15:29] LABS: Vitamin B12 303 pg/mL (239-931)
[2023-12-10 16:49] LABS: Erythrocyte Sedimentation Rate 10 mm/hr (0-20)
[2023-12-12 08:17] LABS: FSH 40.9 mIU/mL (.); LH 33.9 mIU/mL (.)
[2023-12-12 11:21] LABS: RA Latex Turbid. <10.0 IU/mL (<14.0)
== END 2023-12-10 23:59 | disposition home or self-care (01) ==
LOC: LAB 13:36
PROVIDERS: PCP Nurse Practitioner Family; Visit Provider Nurse Practitioner Family
DX: Z00.00 Encounter for general adult medical examination without abnormal findings (principal); E53.8 Deficiency of other specified B group vitamins; R61 Generalized hyperhidrosis; M25.48 Effusion, other site
CPT/HCPCS: 36415; 80050; 80053; 80061; 82306; 82607; 82670; 83001; 83002; 83036; 84443; 85025; 85651; 86140; 86431

== ENCOUNTER 2024-05-27 18:39 | Emergency (ER) | payer OTHER, SELFPAY ==
[2024-05-27 18:48] VITALS: BP 153/86; PULSE 79; RESP 16; TEMP 36.2; O2SAT 98; BMI 40.3
--- NOTE | 2024-05-27 20:04 | XR_ITS ---
PROCEDURE INFORMATION: Exam: XR Right Knee Exam date and time: 05/27/2024 8:07 PM Age: 48 years old Clinical indication: Injury or trauma; Fall; Other: Pain; Additional info: Anterior/patellar pain afteer fall TECHNIQUE: Imaging protocol: Radiologic exam of the right knee. Views: 3 views. COMPARISON: No relevant prior studies available. FINDINGS: Bones/joints: Normal. Soft tissues: Normal. IMPRESSION: No acute findings.
--- NOTE | 2024-05-27 20:04 | XR_ITS ---
PROCEDURE INFORMATION: Exam: XR Right Shoulder Exam date and time: 05/27/2024 8:00 PM Age: 48 years old Clinical indication: Injury or trauma; Fall; Other: Pain; Additional info: Anterior pain after fall TECHNIQUE: Imaging protocol: Radiologic exam of the right shoulder. Views: 2 or more views. COMPARISON: CR SHOULDCMRT XR shoulder RT min 2V 07/18/2018 11:07 AM FINDINGS: Bones/joints: Normal. Soft tissues: Normal. IMPRESSION: No acute findings.
[2024-05-27] MEDS: ACETAMINOPHEN 500MG TAB 1000 MG PO (20:28)
--- NOTE | 2024-05-27 20:56 | ED_ITS ---
Discharge Plan Disposition Patient Disposition: Home, Self-Care Prescriptions Prescriptions: No Action zolpidem 10 MG Tablet 10 mg PO HS PRN (Reason: Sleep) lorazepam 1 MG Tablet 1 mg PO DAILY PRN (Reason: Anxiety) armodafinil [Nuvigil] 150 MG Tablet 150 mg PO DAILY PRN (Reason: energy) levocetirizine [Xyzal] 5 MG Tablet 5 mg PO DAILY venlafaxine 37.5 MG capsule,extended release 24hr 37.5 mg PO DAILY valacyclovir 1,000 MG tablet 1,000 mg PO DAILY gabapentin 300 MG capsule 600 mg PO TID diclofenac sodium 75 MG tablet,delayed release (DR/EC) 75 mg PO BID topiramate 50 MG tablet 50 mg PO DAILY vit D3-vit [id number] 1 EACH tablet 10,000 mg PO DAILY Referrals Follow up/Referrals: Ginny Brunner APRN [Primary Care Provider] - See instructions Activity Restrictions/Add. Instructions Additional Instructions/Restrictions: Follow-up with your family doctor as needed for this visit to the emergency department. Take Tylenol 1000 mg every 6 hours (4 times daily) and ibuprofen 400 mg every 6 hours (4 times daily) as needed with food and water to prevent GI upset and kidney damage. Light duty at work until following up with your family doctor. Clinical Impressions Clinical Impression: Acute shoulder pain Qualifiers: Laterality: right Qualified Code(s): M25.511 - Pain in right shoulder Acute knee pain Qualifiers: Laterality: right Qualified Code(s): M25.561 - Pain in right knee Print Language Print Language: Bengali Discharge ED Provider: Armond Marshall General Adult HPI General Chief complaint: PAIN Stated complaint: AO 05/26/24 fell injury right side shoulder to kne Time Seen by Provider: 05/27/24 19:25 Mode of Arrival: Ambulatory Source of Information: Patient Description of Symptoms (Recalled from ER Triage Doc. by RN): Pt presents with c/o right elbow, right knee, right shoulder and left sided neck pain after a fall yesterday while at work. Pt rolled her left ankle in a pot hole at work. Pt states she did not hit her head, did not have LOC, denies blood thinners. History of Present Illness HPI narrative: Please note that above description of symptoms, in this electronic medical record under categorization of recalled from ER triage doctor by RN are reflective of an initial nursing assessment, however, is not reflective of my full history and physical exam that was personally taken and clarified. Consequentially, this preceding description of symptoms, which may include the patient's categorized chief complaint in the EMR, do not reflect my personal clinical impression, and the ultimate description of history of present illness and patient stated complaints should be deferred to this section of the note. Unless stated otherwise or congruent with this section of the note, additional signs, symptoms, or incongruence should be interpreted as inaccurate with my clinical impression. Related Data Home Medications ?Medication ?Instructions ?Recorded ?Confirmed armodafinil 150 mg tablet (Nuvigil) 150 mg PO DAILY PRN energy 07/28/17 12/27/20 levocetirizine 5 mg tablet (Xyzal) 5 mg PO DAILY allergies 07/28/17 12/27/20 lorazepam 1 mg tablet 1 mg PO DAILY PRN Anxiety 07/28/17 12/27/20 zolpidem 10 mg tablet 10 mg PO HS PRN Sleep 07/28/17 12/27/20 diclofenac sodium 75 mg 75 mg PO BID Pain 12/06/19 12/27/20 tablet,delayed release gabapentin 300 mg capsule 600 mg PO TID Pain 12/06/19 12/27/20 topiramate 50 mg tablet 50 mg PO DAILY migraine 12/06/19 12/27/20 valacyclovir 1 gram tablet 1,000 mg PO DAILY shingles 12/06/19 12/27/20 venlafaxine 37.5 mg 37.5 mg PO DAILY Anxiety 12/06/19 12/27/20 capsule,extended release 24 hr vitamin D3 500 unit-vit K 500 10,000 mg PO DAILY Supplement 12/06/19 12/27/20 mcg-berberine 90 mg-hops 370 mg tablet Allergies Allergy/AdvReac Type Severity Reaction Status Date / Time oxycodone Allergy Intermediate SEVERE Verified 12/12/19 10:19 HEADACHE red dye Allergy Intermediate NA-DIARRHEA Verified 12/12/19 10:19 Sulfa (Sulfonamide Allergy Intermediate I-HIVES Verified 12/12/19 10:19 Antibiotics) [facility] Disclaimer: The information contained in this section may have been updated after the patient was seen, as this information can be updated by other users. 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 current occupational exposures/hazards: No caffeine: Yes Have you lived/traveled outside [place] in past 30 days?: No Contact w/someone who lives/traveled outside [place] past 30 days?: No Exposure to someone with infectious disease in past 14 days?: No Do you have a fever (greater than 100.4 F or 38 C)?: No Have you tested positive for COVID-19: No Exposed to someone with COVID-19 in past 14 days?: No Do you have a sore throat?: No Do you have a cough?: No Do you have any weakness?: No Do you have any diarrhea?: No Are you experiencing any unusual bleeding?: No Do you have any muscle aches/pain?: No Do you have any abdominal pain?: No Are you experiencing loss of taste or smell?: No Other Medical History Have you received the Flu Vaccine for this season: No Have you received the Pneumonia Vaccine: No ROS Obtained: Yes All systems reviewed & no additional complaints except as documented Physical Exam General General appearance: alert Head Head exam: atraumatic and normocephalic Eye Eye exam: Present normal appearance, PERRL and EOMI Neck Neck exam: Present normal inspection, full ROM and trachea midline Respiratory Respiratory exam: Absent respiratory distress, wheezes, stridor, accessory muscle use or prolonged expiratory phase Cardiovascular Cardiovascular exam: Present other (Pulses equal symmetric in upper and lower extremities) Abdominal Exam Abdominal exam: Present soft; Absent distention, tenderness or pulsatile mass Extremities Exam Extremities exam: Absent edema Neurological Exam Neurological exam: Present alert, oriented X3 and CN II-XII intact; Absent motor sensory deficit Skin Skin exam: Present warm and dry; Absent diaphoresis or erythema Medical Decision Making Medical Records Medical records reviewed: Yes I reviewed the patient's medical records. Screening: Per USPSTF and CDC recommendations, given the prevalence of disease in our region, it is our hospital?s policy to screen for HIV and viral Hepatitis for all patients aged 18 and over and those with ongoing risk factors. Timothy Inquiry Pt receiving controlled substance: No Timothy was queried for this patient: No Vital Signs: 05/27/24 18:48 05/27/24 21:07 Temperature 97.2 F L 98.5 F Temperature Source Temporal Artery Scan Oral Pulse Rate 87 Pulse Rate [Right] 79 Respiratory Rate 16 18 Blood Pressure 140/78 Blood Pressure [Right Arm] 153/86 H Blood Pressure Mean [Right Arm] 108 Blood Pressure Source Automatic Cuff Blood Pressure Source [Right Arm] Automatic Cuff Blood Pressure Position Sitting Blood Pressure Position [Right Arm] Sitting 02 Sat by Pulse Oximetry 98 Oxygen Delivery Method Room Air Room Air Orders (Tests/Meds): ED MEDICATIONS Discontinued Medications Generic Name Dose Route Start Last Admin Trade Name Blake PRN Reason Stop Dose Admin Acetaminophen 1,000 mg 05/27/24 20:04 05/27/24 20:28 Acetaminophen 500mg Tab PO 05/27/24 20:05 1,000 mg ONCE ONE Administration Ibuprofen 600 mg 05/27/24 20:04 05/27/24 20:42 Ibuprofen 600 Mg Tablet PO 05/27/24 20:05 Not Given ONCE ONE ORDERS Category Date Time Status Knee XR right 3 views [XR knee RT 3V] Stat Exams 05/27/24 20:04 Taken Shoulder XR right miminum 2 views [XR shoulder RT min Exams 05/27/24 20:04 Taken 2V] Stat Medical Decision Narrative: 48-year-old female no relevant medical history presenting with multiple complaints. States that she was walking and tripped over a patch of uneven blacktop. Landed on her knees and bilateral hands. No loss of consciousness, did not hit her head, this happened yesterday. Has been icing it, Tylenol, Motrin, this does not seem to help. Came in for further evaluation and Worker's Compensation. History was obtained via conversation with patient. On arrival, patient hemodynamically stable, alert, oriented x4, appropriate, GCS 15, moving all extremities spontaneously, pupils equal and reactive to light. Full physical exam performed and significant for obese, very clinically well- appearing female who is in no acute distress. No outward abnormalities objectively, but states that she is having trouble ranging her right shoulder secondary to severe pain. Neurovascularly intact. Differential includes sprain, strain, fracture, dislocation, among others. Patient given Tylenol and Motrin. X-rays obtained. On independent interpretation, these were negative for any acute bony abnormalities. Given patient presentation, workup, history, this most likely represents right shoulder sprain in the setting of fall. Because patient at baseline without signs or symptoms of clinical decompensation, deemed appropriate for discharge. Results were relayed to patient who voiced understanding and were agreeable to outpatient management and follow up. I discussed my clinical impression with patient and answered all questions. At this time, the evidence for any other entities in the differential is insufficient to warrant any further testing or ED observation. This was explained as well. Advisory was given that persistent or worsening symptoms require further evaluation. I confirmed the understanding of this discussion. Highway Painter disclaimer Much of this encounter note is an electronic information technology architect spoken language to printed text. Electronic information technology architect of the spoken language may permit errors. Although I have reviewed the note, some errors may still exist. Critical Care Critical Care Time Critical Care Time: No
[2024-05-27 21:07] VITALS: BP 140/78; PULSE 87; RESP 18; TEMP 36.9; O2SAT 98
== END 2024-05-27 21:18 | disposition home or self-care (01) ==
PROVIDERS: Emergency Provider Emergency Medicine; PCP Nurse Practitioner Family
DX: M25.511 Pain in right shoulder (principal); M25.561 Pain in right knee; F17.210 Nicotine dependence, cigarettes, uncomplicated; W01.0XXA Fall on same level from slipping, tripping and stumbling without subsequent striking against object, initial encounter; Y93.89 Activity, other specified; Y92.89 Other specified places as the place of occurrence of the external cause
CPT/HCPCS: 73030; 73562; 99283

== ENCOUNTER 2024-10-24 16:21 | Outpatient (CLI) | payer OTHER, SELFPAY ==
--- OUTSIDE RECORDS SUMMARY | 2024-08-26 14:25 | XMS_ITS | Encounter Summary ---
Author Organization [place] [address] Care Team Providers Care Tableau Architect Name Role Phone Myles Davis MD Primary Care Provider [phone] Karen Greer Clerical Staff Unavailable Encounter Details Date Type Department Care Team (Latest Contact Info) Description 08/26/2024 2:25 PM EDT - 08/26/2024 11:59 PM EDT Hospital Encounter [facility] [address] [place] [address] Diarrhea, unspecified type; Generalized abdominal pain Discharge Disposition: Home or Self Care Social History Tobacco Use Types Packs/Day Years Used Date Smoking Tobacco: Light Smoker Cigarettes Smokeless Tobacco: Never Alcohol Use Standard Drinks/Week Comments Yes 0 (1 standard drink = 0.6 oz pur e alcohol) occassioinally Sexually Active Control Partners Comments Yes Comments No Sex and Gender Information Value Date Recorded Sex Assigned at Not on file Legal Sex Female 8:43 AM EDT Gender Identity Not on file Sexual Orientation Not on file documented as of this encounter Medications at Time of Discharge buPROPion (WELLBUTRIN XL) 150 mg Oral Tablet Sustained Release 24 hr Take 150 mg by mouth every morning. Cholecalciferol, Vitamin D3, 250 mcg (10,000 unit) Oral CapsuleIndications:M ultiple sclerosis, relapsing-remitting (HCC) Take 10,000 Units by mouth daily. 30 Cap 4 0 cyclobenzaprine (FLEXERIL) 10 mg Oral Tablet Take 10 mg by mouth nightly as needed. 3 DICLOFENAC SODIUM ORAL Take 75 mg by mouth 2 times daily. dicyclomine (BENTYL) 20 mg Oral TabletIndications:Di arrhea, unspecified type,Generalized abdominal pain Take 1 Tablet by mouth 3 times daily (before meals). 90 Tablet 1 5 gabapentin (NEURONTIN) 600 mg Oral Tablet Take 600 mg by mouth 3 times daily. levocetirizine dihydrochloride (XYZAL ORAL) Take 10 mg by mouth daily. lorazepam (ATIVAN) 1 mg tablet Take by mouth. 1/2 to one bid ocrelizumab (OCREVUS) 30 mg/mL IV SolutionIndications: Multiple sclerosis, relapsing-remitting (HCC) Inject 20 mL into the vein Every 6 Months. 20 mL 1 5 omeprazole (PRILOSEC) 20 mg Oral Capsule, Delayed Release(E.C.) Take 20 mg by mouth daily as needed. 7 topiramate (TOPAMAX) 100 mg Oral Tablet Take 100 mg by mouth daily. 4 valACYclovir (VALTREX) 1 gram Oral Tablet Take 1 g by mouth daily. venlafaxine (EFFEXOR-XR) 37.5 mg Oral Capsule, Sust. Release 24 hr Take 37.5 mg by mouth daily. zolpidem (AMBIEN) 10 mg Oral Tablet Take 10 mg by mouth nightly as needed. 3 ondansetron (ZOFRAN-ODT) 4 mg Oral Tablet, Rapid DissolveIndications: Multiple sclerosis, relapsing-remitting (HCC) Take 1 Tab by mouth daily as needed for Nausea (for premedication for solumedrol). 5 Tab 9 09/27/19 25 documented as of this encounter Discharge Disposition Disposition Code Departure Means Destination Home or Self Care documented in this encounter Plan of Treatment Upcoming Encounters Date Type Department Care Team (Late st Contact Info) Description 01/17/2025 3:40 PM EST Office Visit [facility] [address] [place] [phone] Moncho Dyer MD [address] [place] [address] documented as of this encounter Procedures Procedure Name Priority Date/Time Associated Diagnosis Comments SEDIMENTATION RATE AUTOMATED Routine 08/26/2024 2:24 PM EDT Diarrhea, unspecified type Generalized abdominal pain C-REACTIVE PROTEIN Routine 08/26/2024 2: 24 PM EDT Diarrhea, unspecified type Generalized abdominal pain documented in this encounter Results * (ABNORMAL) C-REACTIVE PROTEIN (08/26/2024 2:24 PM EDT) CRP 10.75(H) <=5.00 mg/L 08/26/2024 8:49 PM EDT [facility] Blood VENOUS BLOOD / Unknown Venipuncture / Unknown 08/26/2024 2:24 PM EDT 08/26/2024 2:24 PM EDT Elver Juan MD PHD CHEMISTRY ORDERABLES Final Result Performing Organization Address City/[facility]/ZIP Co de Phone Number [facility] [address] [facility] , [place] [address] * SEDIMENTATION RATE AUTOMATED (08/26/2024 2:24 PM EDT) Sed Rate 7 0 - 20 mm/hr 08/26/2024 8:14 PM EDT [facility] Blood VENOUS BLOOD / Unknown Venipuncture / Unknown 08/26/2024 2:24 PM EDT 08/26/2024 2:24 PM EDT Elver Juan MD PHD HEMATOLOGY ORDERABLES Final Result Performing Organization Address City/[facility] Co de Phone Number [facility] [address] [facility] , [place] [address] documented in this encounter Visit Diagnoses Diagnosis Diarrhea, unspecified type Generalized abdominal pain Abdominal pain, generalized documented in this encounter Orders Lab Orders Without Results Count Last Ordered D ate First Ordered Date FECAL CALPROTECTIN 1 08/26/2024 documented in this encounter Care Teams Tableau Architect Relationship Specialty Start Date End Date Myles Davis MD [address] [place] [address] [place] [id number] PCP - General Internal Medicine-Adolescent Medicine 03/29/15 Karen Greer, Clerical Staff Financial Counselor 03/24/24 documented as of this encounter
--- OUTSIDE RECORDS SUMMARY | 2024-09-03 10:34 | XMS_ITS | Encounter Summary ---
Author Organization [place] [address] Care Team Providers Care Mental Telepathist Name Role Phone Myles Davis MD Primary Care Provider [phone] Karen Greer Clerical Staff Unavailable Encounter Details Date Type Department Care Team (Latest Contact Info) Description 09/03/2024 10:34 AM EDT - 09/03/2024 11:59 PM EDT Hospital Encounter [facility] [address] [place] [address] Diarrhea, unspecified type Discharge Disposition: Home or Self Care Social [...] 3:40 PM EST Office Visit [facility] [address] [place] [address] Moncho Dyer MD [address] [place] [facility] [place] [address] documented as of this encounter Procedures Procedure Name Priority Date/Time Associated Diagnosis Comments FECAL CALPROTECTIN Routine 09/03/2024 10 :32 AM EDT Diarrhea, unspecified type documented in this encounter Results * (ABNORMAL) FECAL CALPROTECTIN (09/03/2024 10:32 AM EDT) Fecal Calprotectin 326(H) <50 ug/g 09/04/2024 11:52 AM EDT [facility] Comment: Normal: <50 ug/g Borderline: 50-120 ug/g Elevated: >120 ug/g Stool RECTUM STRUCTURE / Unknown 09/03/2024 10:32 AM EDT 09/03/2024 10:32 AM EDT Elver De La Torre MD IMMUNOLOGY ORDERABLES Final Result [facility] [address] [facility] , [address] [place], [place] [id number] documented in this encounter Visit Diagnoses Diagnosis Diarrhea, unspecified type documented in this encounter Care Teams Mental Telepathist Relationship Specialty Start Date End Date Myles Davis MD [address] [place] [id number] PCP - General Internal Medicine-Adolescent Medicine 03/29/15 Karen Greer, Clerical Staff Financial Counselor 03/24/24 documented as of this encounter
--- OUTSIDE RECORDS SUMMARY | 2024-09-26 07:10 | XMS_ITS | Encounter Summary ---
Author Organization [facility] [place] [address] Care Team Providers Care End User Support Specialist Name Role Phone Myles Davis MD Primary Care Provider [phone] Karen Greer Clerical Staff Unavailable Reason for Referral * Surgical (Routine) - Authorization Not Needed Specialty Diagnoses / Procedures Referred By Contac t Referred To Contact Gastroenterology Diagnoses Diarrhea, unspecified type Generalized abdominal pain Procedures COLONOSCOPY MA COLONOSCOPY FLX DX W/COLLJ SPEC WHEN PFRMD MA COLONOSCOPY FLX W/ENDOSCOPIC MUCOSAL RESECTION Elver Juan MD PHD [address] [place] [address] Phone: tel: fax: Referral ID Status Reason Start Date Expiration Date Visits Requested Visits Authorized [id number] Authorization Not Needed 06/27/2024 06/27/2025 1 1 Reason for Visit * Surgical (Routine) - Authorization Not Needed Specialty Diagnoses / Procedures Referred By Contac t Referred To Contact Gastroenterology Diagnoses Diarrhea, unspecified type Generalized abdominal pain Procedures COLONOSCOPY MA COLONOSCOPY FLX DX W/COLLJ SPEC WHEN PFRMD MA COLONOSCOPY FLX W/ENDOSCOPIC MUCOSAL RESECTION Elver Juan MD PHD [address] [place] [address] Phone: tel: fax: Referral ID Status Reason Start Date Expiration Date Visits Requested Visits Authorized [id number] Authorization Not Needed 06/27/2024 06/27/2025 1 1 Encounter Details Date Type Department Care Team (Latest Contact Info) Description 09/26/2024 7:10 AM EDT - 09/26/2024 11:59 PM EDT Hospital Encounter [facility] [address] [place] [address] Elver Juan MD PHD [address] [facility] [address] Dexter Nguyen DO [address] [place] [address] Yojana Man CRNA [address] [place], [place] [id number] Diarrhea, unspecified type; Generalized abdominal pain; Multiple sclerosis, relapsing-remitting (HCC) Discharge Disposition: Home or Self Care Social [...] on file documented as of this encounter Last Filed Vital Signs Vital Sign Reading Time Taken Comments Blood Pressure 130/86 09/26/2024 9:17 AM EDT Pulse 68 09/26/2024 9:17 AM EDT Temperature 36.7 C (98.1 F) 09/26/2024 8:26 AM EDT Respiratory Rate 16 09/26/2024 9:17 AM EDT Oxygen Saturation 100% 09/26/2024 9:17 AM EDT Inhaled Oxygen Concentration - - Weight 104.5 kg (230 lb 6.4 oz) 09/26/2024 7:23 AM EDT Height 167.6 cm (5' 6 ) 09/26/2024 7:23 AM EDT Body Mass Index 37.19 09/26/2024 7:23 AM EDT documented in this encounter Discharge Instructions * Discharge Instructions* Verónica Sinclair RN - 09/26/2024 7:52 AM EDT Images from the original note were not included. [facility] Discharge Instructions - Following Endoscopy A responsible adult, 18 years or older must be in attendance until the next A.M. Rest quietly today. May resume usual diet. Do not drive or operate any machinery until the next A.M., or as instructed. No alcoholic beverages for 24 hours. Do not make any legal or important decisions for the next 24 hours. Call the physician???s office for a follow-up visit or any concerns. Patient discharged to the care of Rober (spouse) ADDITIONAL INSTRUCTIONS: Call Dr. Juan at [phone] if the following occurs: Colonoscopy: Severe abdominal pains and swelling (mild abdominal cramps and gas pains can be expected), nausea and vomiting, rectal bleeding (with biopsy or polyps a small amount of blood can be expected), body temp. over 101 degrees, chills. Medications Reviewed Discharge Instructions - Following Anesthesia We appreciate the opportunity to care for you today! Here are a few reminders as you head home: A responsible adult, 18 years or older must be in attendance until tomorrow morning. Rest quietly today. May resume usual diet as tolerated or as directed by your surgeon. Do not drive or operate any machinery until tomorrow morning or as instructed. Do not make any legal or important decisions for the next 24 hours. Do not drink alcoholic beverages or take sleeping pills for 24 hours unless otherwise directed. If you received a nerve block for post-operative pain control, protect your blocked arm/leg. It is numb. Carefully pad your limb to prevent pressure sores and other injuries. Be careful with applyingcold/warm to the blocked limb. Numbness will alter the sensation of the limb and could damage your skin if you cannot correctly feel the temperature. If you have questions or concerns regarding your anesthesia experience, please call our office at . Get Well Soon! [facility] ____ Patient Education Monitored Anesthesia Care About this topic Monitored anesthesia care is also known as MAC. With MAC, the goal is to keep you safe, comfortable, and relaxed for your procedure. Doctors may use this kind of anesthesia when you don???t need to be fully asleep. With MAC, you may have a very light calm feeling. Other times, you may have a very deep sleepiness. This depends on what the doctor needs for you and your procedure. Only someone with s pecial training can give MAC, and this includes: Anesthesiologists Certified registered nurse anesthetists (CRNAs) Anesthesia Assistants Why is this procedure done? This type of anesthesia is often for procedures like: Breast tissue samples Colonoscopy Vasectomy Dental surgery, like an implant or taking out an impacted tooth Minor foot surgery Endoscopy Fix a broken bone Plastic cosmetic surgery Endotracheal procedure What happens during the procedure? Doctors determine what your sedation level will be during your procedure. For some procedures, you are very relaxed, sleepy, and you are easy to wake up when needed. For others, you are able to talk and answer questions. For some procedures, you are in a deep sleep. The deeper the sedation, the less likely you are to remember the procedure. Many people do not remember their procedure at all afterMAC, but others do. Talk to your doctor if you worry about your level of sedation for your procedure. What happens after the procedure? Side effects are less common than with general anesthesia. Some people still have: Headache Upset stomach or throw up Hangover feeling Short period of no memory Bad memories What care is needed at home? Have a responsible adult with you after your procedure to help you. They can also call for help if you have problems. Do not make major decisions or sign important papers for at least 24 hours. You may not be thinkingclearly. Do not drive or operate machinery for 24 hours or until your doctor says you can. What problems could happen? Low blood pressure Breathing problems Allergic reaction Too much or not enough sedation Last Reviewed Date 2020-10-08 Consumer Information Use and Disclaimer This generalized information is a limited summary of diagnosis, treatment, and/or medication information. It is not meant to be comprehensive and should be used as a tool to help the user understand and/or assess potential diagnostic and treatment options. It does NOT include all information about conditions, treatments, medications, side effects, or risks that may apply to a specific patient. Itis not intended to be medical advice or a substitute for the medical advice, diagnosis, or treatment of a health care provider based on the health care provider's examination and assessment of a patient???s specific and unique circumstances. Patients must speak with a health care provider for complete information about their health, medical questions, and treatment options, including any risks orbenefits regarding use of medications. This information does not endorse any treatments or medications as safe, effective, or approved for treating a specific patient. [employer] and its affiliates disclaim any warranty or liability relating to this information or the use thereof. The use of this information is governed by the Terms of Use, available at https://www.[employer].com/en/know/bpoldjsz-aecaqmgipprsy-mizck Copyright Copyright ?? 2022 [employer] and its affiliates and/or licensors. All rights reserved. documented in this encounter Medications at Time of Discharge [...] mg by mouth daily as needed. 7 ondansetron (ZOFRAN-ODT) 4 mg Oral Tablet, Rapid DissolveIndications: Multiple sclerosis, relapsing-remitting (HCC) Dissolve 1 Tablet by mouth every 6 hours as needed for Nausea, Vomiting or Breakthrough Nausea/Vomiting. 30 Tablet 5 5 topiramate (TOPAMAX) 100 mg Oral Tablet Take 100 mg by mouth daily. 4 valACYclovir (VALTREX) 1 gram Oral Tablet Take 1 g by mouth daily. venlafaxine (EFFEXOR-XR) 37.5 mg Oral Capsule, Sust. Release 24 hr Take 37.5 mg by mouth daily. zolpidem (AMBIEN) 10 mg Oral Tablet Take 10 mg by mouth nightly as needed. 3 documented as of this encounter Ordered Prescriptions Prescription Sig Dispense Quantity Refills Last Filled Start Date End Date ondansetron (ZOFRAN-ODT) 4 mg Oral Tablet, Rapid DissolveIndicatio ns:Multiple sclerosis, relapsing-remitti ng (HCC) Dissolve 1 Tablet by mouth every 6 hours as needed for Nausea, Vomiting or Breakthrough Nausea/Vomiting. 30 Tablet 5 09/26/2024 documented in this encounter Discharge Disposition Disposition Code Departure Means Destination Home or Self Care documented in this encounter H&P Notes * Elver Juan MD PHD - 09/26/2024 8:00 AM EDT [facility] Gastroenterology Outpatient Pre-Procedural History and Physical Primary Care Physician: Myles Davis MD Pre-Operative Diagnosis: Generalized abdominal pain, Diarrhea Indication(s) For Procedure: same Procedure Planned: Colonoscopy HISTORY OF PRESENT ILLNESS: Sofia Castro is a 49 y.o. female who has a past medical history of Anxiety, Attention-deficit hyperactivity disorder, Depression, Gall stones, Heartburn, History of colonic polyps, Hyperlipidemia,Hypothyroid, Irritable bowel syndrome, and MS (multiple sclerosis) (HCC). who presents for the above procedure(s). The patient takes the following anticoagulant(s)/antiplatelet(s): none. Past Medical History: Diagnosis Date Anxiety Attention-deficit hyperactivity disorder Depression Gall stones Heartburn History of colonic polyps Hyperlipidemia Hypothyroid Irritable bowel syndrome MS (multiple sclerosis) (HCC) Past Surgical History: Procedure Laterality Date SECTION 12/2003 CHOLECYSTECTOMY COLONOSCOPY PARTIAL HYSTERECTOMY 05/2010 Medications: Current Outpatient Medications on File Prior to Encounter Medication Sig Dispense Refill Armodafinil 150 mg Oral Tablet Take 1 Tablet by mouth daily. 30 Tablet 0 buPROPion (WELLBUTRIN XL) 150 mg Oral Tablet Sustained Release 24 hr Take 150 mg by mouth every morning. Cholecalciferol, Vitamin D3, 250 mcg (10,000 unit) Oral Capsule Take 10,000 Units by mouth daily. 30 Cap 4 cyclobenzaprine (FLEXERIL) 10 mg Oral Tablet Take 10 mg by mouth nightly as needed. DICLOFENAC SODIUM ORAL Take 75 mg by mouth 2 times daily. dicyclomine (BENTYL) 20 mg Oral Tablet Take 1 Tablet by mouth 3 times daily (before meals). 90 Tablet 1 gabapentin (NEURONTIN) 600 mg Oral Tablet Take 600 mg by mouth 3 times daily. levocetirizine dihydrochloride (XYZAL ORAL) Take 10 mg by mouth daily. lorazepam (ATIVAN) 1 mg tablet Take by mouth. 1/2 to one bid ocrelizumab (OCREVUS) 30 mg/mL IV Solution Inject 20 mL into the vein Every 6 Months. 20 mL 1 omeprazole (PRILOSEC) 20 mg Oral Capsule, Delayed Release(E.C.) Take 20 mg by mouth daily as needed. ondansetron (ZOFRAN-ODT) 4 mg Oral Tablet, Rapid Dissolve Take 1 Tab by mouth daily as needed for Nausea (for premedication for solumedrol). 5 Tab 0 topiramate (TOPAMAX) 100 mg Oral Tablet Take 100 mg by mouth daily. valACYclovir (VALTREX) 1 gram Oral Tablet Take 1 g by mouth daily. venlafaxine (EFFEXOR-XR) 37.5 mg Oral Capsule, Sust. Release 24 hr Take 37.5 mg by mouth daily. zolpidem (AMBIEN) 10 mg Oral Tablet Take 10 mg by mouth nightly as needed. No current facility-administered medications on file prior to encounter. Allergies: Allergies Allergen Reactions Oxybenzone(Benzophenone 3) Other (See Comments) Headaches Percocet [Oxycodone-Acetaminophen] headache Sulfa (Sulfonamide Antibiotics) hives Family History Problem Relation Age of Onset Obesity Mother Kidney Disease Mother Hypotension Mother Other (AFIB) Mother High Blood Pressure Father High Cholesterol Father Hypertension Father Colon Cancer Father Stroke Father Prostate Cancer Father High Cholesterol Sister Mult Sclerosis Sister Depression Sister Other (Other) Maternal Uncle Heart Attack Maternal Grandmother Diabetes Maternal Grandfather High Blood Pressure Maternal Grandfather Hypertension Maternal Grandfather High Blood Pressure Paternal Grandmother Hypertension Paternal Grandmother Dementia Paternal Grandmother Hypertension Paternal Grandfather Anesth Problems Neg Hx Social History Socioeconomic History Marital status: Spouse name: Not on file Number of children: Not on file Years of education: Not on file Highest education level: Not on file Occupational History Not on file Tobacco Use Smoking status: Light Smoker Types: Cigarettes Smokeless tobacco: Never Vaping Use Vaping status: Never Used Substance and Sexual Activity Alcohol use: Yes Alcohol/week: 0.0 oz Comment: occassioinally Drug use: No Sexual activity: Yes Other Topics Concern Not on file Social History Narrative Not on file Social Drivers of Health Financial Resource Strain: Not on file Food Insecurity: Not on file Transportation Needs: Not on file Physical Activity: Not on file Stress: Not on file Social Connections: Not on file Intimate Partner Violence: Not on file Housing Stability: Not on file PHYSICAL EXAM: Vitals: BP 121/70 (BP Location: Right arm, Patient Position: Semi Fowlers) Pulse 56 Temp 97.4 ??F (36.3??C) (Forehead) Resp 16 Ht 5' 6 (1.676 m) Wt 230 lb 6.4 oz (104.5 kg) SpO2 98% BMI 37.19kg/m?? CONSTITUTIONAL: Awake, alert, cooperative, no apparent distress EYES: EOMI ENT: MMM NECK: supple, symmetrical, trachea midline LUNGS: normal respiratory effort CARDIOVASCULAR: regular rate and rhythm ABDOMEN: soft, non-distended, non-tender MUSCULOSKELETAL: there is no redness, warmth, or swelling of the joints NEUROLOGIC: awake and alert; cranial nerves II-XII are grossly intact SKIN: normal skin color, texture, turgor DATA: Lab Results Component Value Date WBC 5.5 01/22/2018 HGB 13.6 01/22/2018 HCT 41.5 01/22/2018 PLT 229 01/22/2018 CHOLESTEROL 197 04/08/2010 TRIG 100 04/08/2010 HDL 52 04/08/2010 LDLCALC 125 04/08/2010 ALT 29 04/08/2010 AST 20 04/08/2010 NA 137 04/08/2010 K 4.0 04/08/2010 CL 104 04/08/2010 CALCIUM 8.7 04/08/2010 BUN 10 04/08/2010 CREATININE 0.7 04/08/2010 CO2 27 04/08/2010 GLU 81 04/08/2010 TSH 1.820 02/12/2024 TSHREFLEX 0.054 (L) 07/07/2022 No results found for: INR , PROTIME Last Oral Intake: Yesterday Previous Anesthesia Reaction: no Pre-Procedure Assessment: Risks, benefits, potential complications (including but not limited to missed lesions, sedation, bleeding and perforation) and alternatives were discussed with the patient or patient's legally authorized sales representative supervisor. The patient's pre-procedural physical assessment indicates that the patient is suitable for and agrees to the planned sedation and procedure. Cardiovascular and Vital signs Stable: yes Adequate/Patient Oral Airway yes ASA: 2 Mallampati: 1 ASSESSMENT / PLAN: Sofia Castro is a 49 y.o. female who presents for the above specified procedure. Elver Juan MD, PhD documented in this encounter Nursing Notes * Sandy Smart, RN - 09/26/2024 8:00 AM EDTSummary: procedure instructions Images from the original note were not included. PREPARING FOR YOUR ENDOSCOPY PROCEDURE Date of Surgery: 09/26/2024 Arrival Time: 07:00 am Medications Take the following medications on the morning of surgery: gabapentin,topiramate,wellbutrin,venlafaxine Medications to hold prior to surgery; Verify with your doctor for possibly discontinuing the following medications: blood thinners, aspirin, anti-inflammatories, or supplements. Food, Drinks, Tobacco Do not eat or drink after midnight. This includes gum, mints, candy, chewing tobacco, and dip. If you are having a procedure which includes prep, please follow office instructions. No exceptions or substitutions to these restrictions. Do not smoke, vape, or use any type of tobacco or marijuana products within 24 hours prior to surgery. Smoking will also slow your rate of healing. It is advised that you do not smoke during the healing process. No alcohol 24 hours prior to surgery. Fabrication And Assembly Supervisor It is important to have a Fabrication And Assembly Supervisor, someone who is 18 years or older, to accompany you and remain in the facility for the duration of your surgery. This person should be available for the Endoscopy Team to communicate with before, during and after your surgery. Because you are receiving anesthesia, someone is needed to drive you home and remain with you for at least 24 hours after surgery to make sure you are safe during that time. A parent must accompany a child under 18 years of age scheduled for the procedure and remain at thespital until the child is discharged. We also recommend that no children be present on the day of surgery. If you have a concern, please reach out to our department [phone]. Hygiene [place] your teeth and gargle the morning of surgery. Shower the morning of surgery or the night before. Do not wear makeup (including eye makeup) lotion, powder, deodorant, perfume, or cologne. Personal Items Wear clean, simple, loose-fitting clothing (no jeans) and sturdy shoes (no flip flops, slides or crocs) to the hospital. Do not bring unnecessary valuables with you. It is policy that [facility] does not assume responsibility for lost, stolen or broken personal items that are brought in. Exceptions may be consideredfor items which are considered necessary for your healthcare. These items will be formally documented. Remove all jewelry prior to your procedure to prevent injury. We will not tape wedding rings/bands. Remove all body piercings prior to arrival. Plastic inserts are acceptable. Glasses and contacts will need to be removed prior to surgery. Please bring a case for them. Bring with You Bring a copy of your Living Will and/or Durable Power of Foam Molder for Healthcare. Notify the Doctor Notify your doctor if you develop any illness (fever, cold, cough, sore throat, nausea, vomiting, skin rashes etc.) between now and surgery time Notify your doctor and Pre-admission testing ([phone]) if you have any changes in your health conditions or if any new medications are ordered between now and surgery. Questions or Concerns? If you have any questions or concerns, feel free to call the Pre-Admission testing department at [phone]. We want to make sure you feel safe and have an excellent experience while you are here. If you need to cancel/reschedule, please reach out to your physician's office. Do not reply to this message through [employer] as it may not be answered promptly. Endoscopy - [place] at [phone]; [place]: Entrance 1D, on the main floor and enter the sliding doors on the right - [address] [place] [address]. DOORS OPEN AT 6 AM MON-SAT ANESTHESIA - COMMON SIDE EFFECTS (if present, these should resolve within 24 hours) TIREDNESS SHIVERING DIZZINESS DRY MOUTH MILD NAUSEA/VOMITING SORE THROAT/HOARSENESS MILD PAIN OR DISCOMFORT IS NORMAL CALL THE SURGEON DAY OR NIGHT You have nausea or vomiting that doesn???t go away by the next morning. You experience severe pain not relieved by suggested medications. Thank you for letting us care for you. documented in this encounter Plan of Treatment Upcoming Encounters Date Type Department Care Team (Late st Contact Info) Description 01/17/2025 3:40 PM EST Office Visit [facility] Neurology [facility] [address] [place] [address] Moncho Dyer MD [address] [place] [facility] [place] [address] documented as of this encounter Procedures Procedure Name Priority Date/Time Associated Diagnosis Comments COLONOSCOPY Routine 09/26/2024 8:23 AM EDT Diarrhea, unspecified type Generalized abdominal pain Family history of colon cancer in father PATHOLOGY TISSUE REQUEST Routine 09/26/2024 8:12 AM EDT Diarrhea, unspecified type Generalized abdominal pain documented in this encounter Results * COLONOSCOPY (09/26/2024 8:23 AM EDT) Anatomical Region Laterality Modality Endoscopy Narrative 09/26/2024 8:26 AM EDT Table formatting from the original result was not included. Findings The bowel prep quality was excellent. The mucosa appeared normal in the terminal ileum. The mucosa appeared normal throughout the entire colon. Performed multiple random forceps biopsies in the cecum, ascending colon, descending colon and sigmoid colon to rule out colitis Internal small hemorrhoids Recommendation - Follow up pathology results. A pathology report should be available in MyChart in ~1 week. - An additional MyChart note with further recommendations should be available 1-2 weeks after the pathology report. - IF YOU DO NOT RECEIVE THIS INFORMATION VIA MYCHART OR OFFICE PHONE CALL WITHIN 2-3 WEEKS, PLEASE CALL OUR OFFICE FOR FINDINGS & FINAL RECOMMENDATIONS. - Recommend repeat colonoscopy in 5 years due to family history. - No endoscopic findings to explain the patient's abdominal pain and postprandial diarrhea. Suspect likely irritable bowel syndrome. - Follow up in GI clinic to discuss IBS treatment options. Pre-Procedure Diagnosis / Indication Generalized abdominal pain, Diarrhea, unspecified type, Family history of colon cancer in father (age 48) Post-Procedure Diagnosis Small internal hemorrhoids, otherwise normal colonoscopy Staff Staff Role Dexter Nguyen DO Anesthesiologist Philip Horton RN Hot Plate Plywood Press Operator Elver Juan MD PHD Performing Provider Yojana Man CRNA RUBBER EXTRUSION MACHINE OPERATOR Wilma Massey, detective lieutenant Nurse Ruth Dye RN Endoscopy Nurse Medications See Anesthesia Record. Preprocedure A history and physical has been performed, and patient medication allergies have been reviewed. The patient's tolerance of previous anesthesia has been reviewed. The risks and benefits of the procedure and the sedation options and risks were discussed with the patient. All questions were answered and informed consent obtained. ASA 3 - Patient with severe systemic disease Details of the Procedure The patient underwent monitored anesthesia care, which was administered by an anesthesia professional. The patient's blood pressure, heart rate, level of consciousness, oxygen saturation, respirations, ECG and ETCO2 were monitored throughout the procedure. A digital rectal exam was performed. The scope was introduced through the anus and advanced to the cecum. Retroflexion was performed in the rectum. Bowel prep was adequate. The patient's estimated blood loss was minimal. The procedure was not difficult. The patient tolerated the procedure well. There were no apparent adverse events. Patient provided education and educated on specific discharge instructions. Patient educated on medications given during the procedure and new medications for discharge. Patient verbalizes understanding of discharge education. Patient stable and awaiting transport for discharge. Events Procedure Events Event Event Time ENDO SCOPE IN TIME 09/26/2024 8:06 AM ENDO CECUM REACHED 09/26/2024 8:10 AM ENDO SCOPE OUT TIME 09/26/2024 8:21 AM Specimens ID Type Source Tests Collected by Time 1 : random colon biopsies via forceps Tissue Colon PATHOLOGY TISSUE REQUEST Elver Juan MD PHD 09/26/2024 0812 Anesthesia Event Time In Patient In - Proc. Room 07:56 AM Patient Out - Proc. Room 08:23 AM Elver Juan MD PHD ENDOSCOPY PROCEDURE ORDERAB LES Final Result * PATHOLOGY TISSUE REQUEST (09/26/2024 8:12 AM EDT) CASE REPORT Surgical Pathology Case: [id number] Authorizing Provider: Elver Juan MD PHD Collected: 09/26/2024 0812 Ordering Location: [facility] ENDOSCOPY Received: 09/26/2024 0922 Pathologist: Stephanie Calhoun MD Specimen: Colon, random colon biopsies via forceps 09/27/2024 8:41 AM EDT [facility] FINAL DIAGNOSIS Random colon, biopsy: - No specific histopathologic abnormalities. - No evidence of microscopic colitis. 09/27/2024 8:41 AM EDT [facility] at 0841 EDT GROSS DESCRIPTION A. Received in formalin and labeled with the patient's name, medical record number, and random colon biopsies are multiple fragments of collier tissue ranging from 0.2 to 0.5 cm in greatest dimension. Entirely submitted in A1. Jerel Odom 09/26/2024 09/27/2024 8:41 AM EDT [facility] MICROSCOPIC DESCRIPTION The microscopic examination may have been rendered in whole, or in part, by analyzing high-resolution digital images (whole slide images) on the [employer] Digital Pathology platform validated at [facility]. 09/27/2024 8:41 AM EDT [facility] EMBEDDED IMAGES 09/27/2024 8:41 AM EDT [facility] Tissue COLON STRUCTURE / Unknown 09/26/2024 8:12 AM EDT 09/26/2024 9:22 AM EDT us Elver Juan MD PHD PATHOLOGY ORDERABLES Final Result [facility] [id number] [place] [id number] documented in this encounter Visit Diagnoses Diagnosis Diarrhea, unspecified type Generalized abdominal pain Abdominal pain, generalized Multiple sclerosis, relapsing-remitting (HCC) Multiple sclerosis documented in this encounter Administered Medications Inactive Administered Medications - up to 1 most recent administrations Medication Order MAR Action Action Date Dose Rate Site lactated ringers infusion Intravenous, at 50 mL/hr, PREPROCEDURE CONTINUOUS, Starting on Thu09/26/24 at 0717, Until Thu09/27/24 at 0412, To be given in SDS/Pre-op Holding Area, Pre-op (Holding/SDS Meds) IV Restarted 09/26/2024 7:57 AM EDT ondansetron (ZOFRAN) injection 4 mg 4 mg, Intravenous, ONCE PRN, 1 dose, Starting on Thu09/26/24 at 0830, Until Thu09/26/24 at 0836, Nausea, First Line Antiemetic, Do not give if patient received granisetron (Kytril) or ondansetron (Zofran) within 4 hours., PACU Given 09/26/2024 8:36 AM EDT 4 mg documented in this encounter Discontinued Medications Medication Sig Discontinue Reason Start Date End Da te sodium,potassium,mag sulfates 17.5-3.13-1.6 gram Oral Recon Soln Take 1 'box' by mouth See Admin Instructions. Removed During Admission Medication Review 06/27/2024 09/26/2024 ondansetron (ZOFRAN-ODT) 4 mg Oral Tablet, Rapid DissolveIndications: Multiple sclerosis, relapsing-remitting (HCC) Take 1 Tab by mouth daily as needed for Nausea (for premedication for solumedrol). 11/18/2018 09/26/2024 documented as of this encounter Orders Medications Ordered That Ed ht Not Have Been Administered Count Last Ordered Date First Ordered Date droPERidol (INAPSINE) injection 0.625 mg 1 09/26/2024 fentaNYL (SUBLIMAZE) injection 25 mcg 1 ondansetron (ZOFRAN-ODT) dis integrating tablet 8 mg 1 09/26/2024 oxyCODONE (ROXICODONE) immed iate release tablet 5 mg 1 09/26/2024 Discharge Count Last Ordered Date First Orde red Date DISCHARGE PATIENT 1 09/26/2024 documented in this encounter Care Teams End User Support Specialist Relationship Specialty Start Date End Date Myles Davis MD [address] [place] [address] PCP - General Internal Medicine-Adolescent Medicine 03/29/15 Karen Greer, Clerical Staff Financial Counselor 03/24/24 documented as of this encounter
--- OUTSIDE RECORDS SUMMARY | 2024-09-26 07:57 | XMS_ITS | Encounter Summary ---
Author Organization [place] [address] Care Team Providers Care Clinical Research Monitor Name Role Phone Myles Davis MD Primary Care Provider [phone] Karen Greer Clerical Staff Unavailable Encounter Details Date Type Department Care Team (Late st Contact Info) Description 09/26/2024 7:57 AM EDT Anesthesia Event [facility] [address] [place] [address] Dexter Nguyen, DO 1 [place] [address] Lucie Gould APRN 1 [place], [place] [id number] Anesthesia Record Procedure Summary Procedure Name Responsible Anesthesiologist Anesthesia Start Time Anesthesia Stop Time COLONOSCOPY Dexter Nguyen DO 09/26/24 0757 09/13 07/08 0823 Events Date Time Event Comment 09/26/2024 0751 0757 AN Equip Check 0757 An Start 0757 An Start Data 0757 Start Supplemental O2 Disabl es direct capture of O2 [ANES AGENT O2 [[id number]] and Air flow [ANES AGENT AIR [[id number]] variables into chart. 0759 Immediate Pre Anesthetic Ass es 0759 Anesthesia Ready 0805 Time out 0806 Incision 0821 an stop data 0823 An Stop 0823 Handoff I completed my SBAR handoff to the receiving nurse which has included the followin. Identification of the patient, family, or patient surrogate 2. Identification of the responsible practitioner 3. Pertinent medical history 4. Surgical procedure and reason for procedure 5. Intraoperative anesthetic management 6. All current lines, drains and respiratory support. 7. Outstanding follow up orders (X-rays, consults etc) 8. Expectations/Plans for the early post-procedure period 9. Opportunity for questions and acknowledgement of understanding from the receiving PACU/ICU steam distribution supervisor Meds Name Total propofol (DIPRIVAN) injection 50 mg propofol (DIPRIVAN) infusion 10 mg/mL 32 9,175 mcg lidocaine injection 1% 40 mg lactated ringers infusion 500 mL * Agents Name O2 N2O Air * Blood No blood administrations on file. Lines, Drains, and Airways Type Details Placement Removal Peripheral IV 09/26/24; 075; 22; Right; Hand; Lucia RN; 1; 09/26/24; 0918; Therapy completed; Catheter intact, Dressing applied, No Complications 09/26/24 0751 by Lucia Slater RN 09/26/24 0918 by Verónica Sinclair, FELISHA Airway Device: Nasal Cannul a Salter; Placement Date: 09/26/24; Placement Time: 756 (created via procedure documentation); Removal Date: 09/26/24; Removal Time: 13109/26/24 075 by Yojana Man CRNA 09/26/24 1318 by Discharge Provider, Automatic documented in this encounter Social History Tobacco Use Types Packs/Day Years [...] on file documented as of this encounter Procedure Notes * Yojana Man CRNA - 09/26/2024 8:04 AM EDTAssociated Order(s): Airway Intraop Airway Placement: Date/Time: 09/26/2024 7:57 AM Airway type: Nasal cannula salter Placement verified: End tidal CO2 documented in this encounter OR Notes * Anesthesia Postprocedure Evaluation - Dexter Nguyen DO - 09/26/2024 1:17 PM EDT Post-Anesthesia Evaluation Note Patient Name: Sofia Castro Patient Date: September 26, 2024 Post-Anesthesia Evaluation Post op vitals: stable Difficult airway: no Nausea controlled: yes Level of consciousness: awake Post anesthesia pain: adequate analgesia Airway patency: patent Respiratory status: room air Cardiovascular status: stable Hydration status: euvolemic Temperature: Normothermia Perioperative complications: NONE Vitals Value Taken Time BP 130/86 09/26/24 09:17 Resp 16 09/26/24 09:17 SpO2 100 % 09/26/24 09:17 Temp 36.7 ??C (98.1 ??F) 09/26/24 08:26 Pulse 68 09/26/24 09:17 * Anesthesia Preprocedure Evaluation - Dexter Nguyen DO - 09/26/2024 7:51 AM EDT Pre-Anesthesia Evaluation Note Patient Name: Sofia Castro Sex: female Patient : 1975 Age: 49 y.o. Patient Date: September 26, 2024 COLONOSCOPY Anesthesia Evaluation Previous anesthesia. No history of anesthetic complications: Airway Mallampati: II TM distance: >3 FB Neck ROM: full Dental - normal exam Pulmonary - negative ROS (+) History of tobacco use: current Physical exam: Comments: Clear to auscultation Cardiovascular (+)Hyperlipidemia Physical exam: Rhythm: regular Rate: normal (-) no angina, no shortness of breath Neuro/Psych (+) Psychiatric history: Anxiety, Depression and ADHD Peripheral neuropathy (postherpetic neuralgia) Multiple sclerosis (-) seizures and no cerebrovascular disease GI/Hepatic/Renal Comments: Diarrhea Abd pain (+)GERD/PUD: IBS Endo/Other (+)Obese: Severe obesity (BMI 35-39.9) 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 Anesthesia Plan ASA 3 Last solid intake: The patient has not eaten within the last 8 hours. Last clear liquid intake: The patient has not had clear liquids within the last 2 hours. Last tobacco use: The patient has not used tobacco today. Anesthesia Plan: MAC Induction: intravenous Monitors: STD Informed consent Anesthetic plan and risks discussed with: patient. Chart Reviewed and patient examined documented in this encounter Miscellaneous Notes * PAT Pre Evaluation for Anesthesia - Lucie Gould APRN - 09/23/2024 8:31 AM EDT Pre-Anesthesia Evaluation Note Patient Name: Sofia Castro Sex: female Patient : 1975 Age: 49 y.o. Patient Date: September 23, 2024 COLONOSCOPY Anesthesia Evaluation Previous anesthesia. 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 Anesthesia Plan Anesthesia Plan: MAC Chart Reviewed documented in this encounter Plan of Treatment Upcoming Encounters Date Type Department Care Team (Late st Contact Info) Description 01/17/2025 3:40 PM EST Office Visit [facility] Neurology [facility] [address] [place] [address] Moncho Dyer MD [address] [place] [facility] [place] [address] documented as of this encounter Procedures Procedure Name Priority Date/Time Associated Diagnosis Comments INTRAOP AIRWAY PLACEMENT Routine 09/26/2024 7:57 AM EDT documented in this encounter Results * INTRAOP AIRWAY PLACEMENT (09/26/2024 7:57 AM EDT) Narrative [facility] - 09/26/2024 7:57 AM EDT Yojana Man CRNA 09/26/2024 8:04 AM Intraop Airway Placement: Date/Time: 09/26/2024 7:57 AM Airway type: Nasal cannula salter Placement verified: End tidal CO2 us Dexter Nguyen DO [place] ANESTHESIA Final Resul t [facility] [address] [id number] documented in this encounter Visit Diagnoses Not on filedocumented in this encounter Administered Medications Inactive Administered Medications - up to 1 most recent administrations Medication Order MAR Action Action Date Dose Rate Site lactated ringers infusion Intravenous, at 50 mL/hr, PREPROCEDURE CONTINUOUS, Starting on Thu09/26/24 at 0717, Until Thu09/27/24 at 0412, To be given in SDS/Pre-op Holding Area, Pre-op (Holding/SDS Meds) IV Restarted 09/26/2024 7:57 AM EDT lidocaine 1% 10 mg/mL (1 %) injection Intravenous, PRN (Anesthesia), Starting on Thu09/26/24 at 0759, Until Thu09/26/24 at 0823, Anesthesia Intra-op Given 09/26/2024 7:59 AM EDT 40 mg propofol (DIPRIVAN) infusion 10 mg/mL Intravenous, CONTINUOUS PRN, Starting on Thu09/26/24 at 0759, Until Thu09/26/24 at 0823, Anesthesia Intra-op New Bag 09/26/2024 7:59 AM EDT 150 mcg/kg/min 94.05 mL/hr propofoL (DIPRIVAN) injection Intravenous, PRN (Anesthesia), Starting on Thu09/26/24 at 0759, Until Thu09/26/24 at 0823, Anesthesia Intra-op Given 09/26/2024 7:59 AM EDT 50 mg documented in this encounter Care Teams Clinical Research Monitor Relationship Specialty Start Date End Date Myles Davis MD [address] [place] [address] PCP - General Internal Medicine-Adolescent Medicine 03/29/15 Karen Greer, Clerical Staff Financial Counselor 03/24/24 documented as of this encounter
--- NOTE | 2024-10-24 16:23 | MM_ITS ---
PROCEDURE INFORMATION: Exam: MG Bilateral Screening 3D Mammography Exam date and time: 10/24/2024 4:23 PM Age: 49 years old Clinical indication: Screening. No family history of breast cancer. TECHNIQUE: Imaging protocol: Bilateral Screening tomosynthesis and 2D mammography including computer-aided detection (CAD) when performed. COMPARISON: 1. MG MM DIG SCREENING MAMM BI W/CAD 11/11/2019 9:27 AM 2. MG DMSB DIG MAMM-SCREEN JAIRO 12/19/2015 3:51 PM 3. MG DMSB DIG MAMM-SCREEN JAIRO 11/07/2014 9:53 AM 4. MG DMSB DIG MAMM-SCREEN JAIRO 09/03/2012 9:24 AM FINDINGS: MAMMOGRAPHY: Breast composition: The breasts are almost entirely fatty. Mass: No suspicious mass. Architectural distortion: None. Calcifications: No suspicious calcifications. Asymmetric density: None. Skin thickening: None. Axillary adenopathy: None. IMPRESSION: No mammographic evidence of malignancy. Annual screening is recommended unless otherwise clinically indicated. ASSESSMENT: BI-RADS Category 1: Negative.
--- OUTSIDE RECORDS SUMMARY | 2024-10-24 16:23 | XMS_ITS | Encounter Summary ---
Author Organization [place] [address] Care Team Providers Care Junior Mechanical Engineer Name Role Phone Myles Davis MD Primary Care Provider [phone] Karen Greer Clerical Staff Unavailable Reason for Visit * Reason Onset Date Comments Medication Refill 09/29/2024 Armodafinil Encounter Details Date Type Department Care Team (Late st Contact Info) Description 09/29/2024 Refill SEP Neurology [facility] [address] [place] [address] Moncho Dyer MD [address] [place] [address] Medication Refill (Armodafinil) Social History Tobacco Use Types Packs/Day Years [...] on file documented as of this encounter Ordered Prescriptions Prescription Sig Dispense Quantity Refills Last Filled Start Date End Date Armodafinil 150 mg Oral TabletIndications:M ultiple sclerosis, relapsing-remitting (HCC),Chronic fatigue,Shift work sleep disorder Take 1 Tablet by mouth daily. 30 Tablet 09/29/2024 documented in this encounter Miscellaneous Notes * Telephone Encounter - Michael Ruggiero MA - 09/29/2024 10:11 AM EDT Medication Details: Name: Armodafinil Tablet Dose: 150mg Si tablet by mouth daily Side effects: NA Verified Pharmacy: [facility] Kavita Valdez Last office visit: 01.04.2024 Next office visit: 01.17.2025 Neurology notes reviewed: yes Need GEOVANY/GEOVANY result: NA Last Urine Drug Screen (must be at least annual if on controlled substance): NA Drug Contract Signed: NA documented in this encounter Plan of Treatment Upcoming Encounters Date Type Department Care Team (Late st Contact Info) Description 01/17/2025 3:40 PM EST Office Visit SEP Neurology [facility] [address] [place] [id number] Moncho Dyer MD [address] [place] [address] documented as of this encounter Visit Diagnoses Diagnosis Multiple sclerosis, relapsing-remitting (HCC) Multiple sclerosis Chronic fatigue Other malaise and fatigue Shift work sleep disorder Circadian rhythm sleep disorder, shift work type documented in this encounter Discontinued Medications Medication Sig Discontinue Reason Start Date End Da te Armodafinil 150 mg Oral TabletIndications:Multip le sclerosis, relapsing-remitting (HCC),Chronic fatigue,Shift work sleep disorder Take 1 Tablet by mouth daily. Reorder 08/06/2024 09/29/2024 documented as of this encounter Care Teams Junior Mechanical Engineer Relationship Specialty Start Date End Date Myles Davis MD [address] [place] [id number] PCP - General Internal Medicine-Adolescent Medicine 03/29/15 Karen Greer, Clerical Staff Financial Counselor 03/24/24 documented as of this encounter
--- OUTSIDE RECORDS SUMMARY | 2024-10-24 16:23 | XMS_ITS | Clinical Summary ---
Author Organization [facility] Address [address] [place] [address] Phone Care Team Providers Care Tube Bender Name Role Phone Daisy Ramesh Unavailable Unavailable Conditions or Problems Problem Name Problem Code Onset Date Status Entry Date Provider Comment Standard Description Annotate IBS (irritable bowel syndrome) 41305017 (SNOMED CT) Active 08/22 Doug Adam MD Irritable bowel syndrome Shingles, recurrent 3616397 (SNOMED CT) Active 08/22 Doug Adam MD Herpes zoster Multiple sclerosis 96070311 (SNOMED CT) Active 08/21 Nicolasa Menendez Multiple sclerosis Postherpetic Neuralgia 1457969 (SNOMED CT) Active 08/21 Nicolasa Menendez Postherpetic neuralgia Shingles w/o complications 7949482 (SNOMED CT) Active 08/21 Nicolasa Menendez Herpes zoster Medications Medication Instructions Start Date Stop Date Generic Name [facility] Provider PATADAY 0.1 % SOLN Take/use as needed OLOPATADINE HCL 72984421917 Daisy Ramesh TAGAMET HB 200 MG TABS Take one by mouth 3 times daily, morning, afternoon and evening. CIMETIDINE 76235261621 Aida Benitez GABAPENTIN 600 MG TABS Take one by mouth 3 times daily, morning, afternoon and evening. GABAPENTIN [id number] Aida Benitez TRIAMCINOLONE ACETONIDE 0.1 % CREA apply 3 times daily TRIAMCINOLONE ACETONIDE 58278379495 Aida Benitez TOPIRAMATE ER 50 MG CS24 Take one by mouth daily TOPIRAMATE 64977770897 Aiad Barltettdox ARMOUR THYROID 60 MG TABS Take one by mouth daily THYROID 53075426494 Aida Bartlettdox LEVOCETIRIZINE DIHYDROCHLORIDE 5 MG TABS Take one by mouth daily LEVOCETIRIZINE DIHYDROCHLORIDE 77212478178 Aida Bartlettdox VALACYCLOVIR HCL 1 GM TABS Take one by mouth 3 times daily, morning, afternoon and evening. VALACYCLOVIR HCL 72243230043 Aida Benitez ADULT ASPIRIN REGIMEN 81 MG ORAL TABLET DELAYED RELEASE Take one by mouth daily ASPIRIN 96216278176 Aida Bartlettdox PROMETHAZINE HCL 25 MG TABS Take by mouth twice a day PROMETHAZINE HCL 25637706216 Aida Bartlettdox AMBIEN 10 MG TABS Take one by mouth daily ZOLPIDEM TARTRATE 37142920983 Aida Meansx DICLOFENAC SODIUM 75 MG TBEC Take by mouth twice a day DICLOFENAC SODIUM 11164449032 Aida Bartlettdox ARMODAFINIL 150 MG TABS Take one by mouth daily ARMODAFINIL 67944867965 Aida Bartlettdox LORAZEPAM 1 MG TABS Take by mouth twice a day/PRN LORAZEPAM 46462791375 Aida Bartlettdox VITAMIN D3 125 MCG (5000 UT) CHEW Take one by mouth daily CHOLECALCIFEROL 69635184691 Aida Bartlettdox TECFIDERA 240 MG CPDR Take by mouth twice a day DIMETHYL FUMARATE 37256533365 Aida Benitez Medications Administered No information available. Allergies, Adverse Reactions, Alerts Allergy Name Reaction Description Start Date Severity Statu s Provider OXYCODONE HCL Critical Active Pj K BACTRIM DS Critical Active Pj K SULFA DRUGS Critical Active Pj K Results Date Name Value Unit Range Flag Description Office Visit: Room 2 [facility] ie MEDS REVIEW Done Documenta tion of current medications (procedure) SMOK STATUS Current every da y smoker Tobacco smoking status Plan of Care No information available. Procedures No information available. Vital Signs Date Name Value Unit Description BMI (Body Mass Index) 42.28 kg/m2 Bod y Mass Index (Ratio) Body Temperature 97.5 [degF] temperat ure E&M BP Diastolic 74 mm[Hg] blood pressu re, diastolic BP Systolic 128 mm[Hg] blood pressur e, systolic Heart Rate 74 /min pulse rate Height 67 [in_us] height E&M Respiratory Rate 16 /min respirat ory rate E&M Weight Measured 270 [lb_av] weight E& M Weight Measured 270 [lb_av] weight E& M Immunizations No information available. Advance Directives No information available.
--- OUTSIDE RECORDS SUMMARY | 2024-10-24 16:23 | XMS_ITS | Encounter Summary ---
Author Organization [place] [address] Care Team Providers Care Nailing Machine Operator Name Role Phone Myles Davis MD Primary Care Provider [phone] Karen Greer Clerical Staff Unavailable Encounter Details Date Type Department Care Team (Latest Contact Info) Description 09/15/2024 Results Follow-Up [facility] [address] [place] [address] Evler Juan MD PHD [address] [place], [place] [id number] SEDIMENTATION RATE AUTOMATED, C-REACTIVE PROTEIN Social History Tobacco Use Types Packs/Day Years [...] on file documented as of this encounter Plan of Treatment Upcoming Encounters Date Type Department Care Team (Late st Contact Info) Description 01/17/2025 3:40 PM EST Office Visit SEP Neurology [facility] [address] [place] [address] Moncho Dyer MD [address] [place] [address] documented as of this encounter Visit Diagnoses Not on filedocumented in this encounter Care Teams Nailing Machine Operator Relationship Specialty Start Date End Date Mlyes Davis MD [address] [place] [address] PCP - General Internal Medicine-Adolescent Medicine 03/29/15 Karen Greer, Clerical Staff Financial Counselor 03/24/24 documented as of this encounter
--- OUTSIDE RECORDS SUMMARY | 2024-10-24 16:23 | XMS_ITS | Clinical Summary ---
Author Organization [facility] Address [facility] [place] [address] Phone Care Team Providers Care Pmp Name Role Phone Myles Davis MD Primary Care Provider [phone] Karen Greer Clerical Staff Unavailable Allergies Active Allergy Reactions Criticality Noted Date Comments Oxybenzone(Benzophenone 3) Other (See Comments) 09/04/2023 Headaches Oxycodone-Acetaminophen 11/05/2016 headache Sulfa (Sulfonamide Antibiotics) 01/07/2010 hives Medications venlafaxine (EFFEXOR-XR) 37.5 mg Oral Capsule, Sust. Release 24 hr Take 37.5 mg by mouth daily. Active lorazepam (ATIVAN) 1 mg tablet Take by mouth. /2 to one bid Active omeprazole (PRILOSEC) 20 mg Oral Capsule, Delayed Release(E.C.) Take 20 mg by mouth daily as needed. 017 Active Cholecalciferol, Vitamin D3, 250 mcg (10,000 unit) Oral CapsuleIndications :Multiple sclerosis, relapsing-remittin g (HCC) Take 10,000 Units by mouth daily. 30 Cap 4 020 Active buPROPion (WELLBUTRIN XL) 150 mg Oral Tablet Sustained Release 24 hr Take 150 mg by mouth every morning. Active gabapentin (NEURONTIN) 600 mg Oral Tablet Take 600 mg by mouth 3 times daily. Active cyclobenzaprine (FLEXERIL) 10 mg Oral Tablet Take 10 mg by mouth nightly as needed. 023 Active zolpidem (AMBIEN) 10 mg Oral Tablet Take 10 mg by mouth nightly as needed. 023 Active valACYclovir (VALTREX) 1 gram Oral Tablet Take 1 g by mouth daily. Active DICLOFENAC SODIUM ORAL Take 75 mg by mouth 2 times daily. Active levocetirizine dihydrochloride (XYZAL ORAL) Take 10 mg by mouth daily. Active topiramate (TOPAMAX) 100 mg Oral Tablet Take 100 mg by mouth daily. 024 Active ocrelizumab (OCREVUS) 30 mg/mL IV SolutionIndication s:Multiple sclerosis, relapsing-remittin g (HCC) Inject 20 mL into the vein Every 6 Months. 20 mL 1 025 Active dicyclomine (BENTYL) 20 mg Oral TabletIndications: Diarrhea, unspecified type,Generalized abdominal pain Take 1 Tablet by mouth 3 times daily (before meals). 90 Tablet 1 025 Active ondansetron (ZOFRAN-ODT) 4 mg Oral Tablet, Rapid DissolveIndication s:Multiple sclerosis, relapsing-remittin g (HCC) Dissolve 1 Tablet by mouth every 6 hours as needed for Nausea, Vomiting or Breakthrough Nausea/Vomiting . 30 Tablet 5 025 Active Armodafinil 150 mg Oral TabletIndications: Multiple sclerosis, relapsing-remittin g (HCC),Chronic fatigue,Shift work sleep disorder Take 1 Tablet by mouth daily. 30 Tablet 025 Active ondansetron (ZOFRAN-ODT) 4 mg Oral Tablet, Rapid DissolveIndication s:Multiple sclerosis, relapsing-remittin g (HCC) Take 1 Tab by mouth daily as needed for Nausea (for premedication for solumedrol). 5 Tab 019 2024 Discontinued Active Problems Problem Noted Date Diagnosed Date Postherpetic neuralgia 01/04/2024 Assessment & Plan (01/04/2024 5:00 PM EDT): Mrs. Castro has post shingles pain involving the right V1 distribution. She does find the gabapentin that she is taking currently to be very effective for managing this problem. She tries to take as little of the medication as possible, sometimes going down to as much as 600 mg twice a day or even daily. I am okay with her adjusting the gabapentin dose to reflect the need for her postherpetic neuralgia pain. Hyperthyroidism 07/10/2022 Cigarette nicotine dependence in remission 12/09 Assessment & Plan (09/02/2022 5:18 PM EDT): Mrs. Castro is a smoker and is aware she should quit. She has actually cut back on the amount that she smokes. She is currently using Wellbutrin for depression, but was made aware that it can also be helpful for smoking cessation. She does believe that she has been smoking less since taking this medication. She inquired about using Chantix, which I am okay with her doing. She was given a prescription for Chantix starting and continuing packs. We spent at least 3 minutes discussing smoking and smoking cessation. She is aware to notify me if she needs further assistance with smoking cessation. Assessment & Plan (12/09/2021 5:14 PM EDT): Mrs. Castro is a smoker and is aware she should quit. She was provided a pamphlet that outlines the services at [facility] offers for smoking cessation. If she were to desire any of these treatments she is aware she only needs to contact any of her [facility] physicians. 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 She was there this morning at 04:45 (12-09-2021). Her drive is an hour each way. Assessment & Plan (01/04/2024 4:59 PM EDT): Mrs. Castro is doing well from a multiple sclerosis standpoint, but does continue to have problems with fatigue and sleep. She does find that Nuvigil is helpful for her fatigue. She will continue using it as well as for her shiftwork sleep disorder. Assessment & Plan (09/02/2022 5:15 PM EDT): Mrs. Castro has problems with fatigue, which is the most common complaint for patients with multiple sclerosis. She gets up between 03:30 and 04:30 and is on campus between 05:30 and 06:00. She was there this morning at 04:45 (12-09-2021). Her drive is an hour each way. She is using Nuvigil and does find it to be effective, but she continues to have problems with fatigue even when using it. She does not use the Nuvigil over the weekend or when not at work. I believe she is using the medication appropriately and will continue to do so. Assessment & Plan (12/09/2021 5:13 PM EDT): Mrs. Castro also has a likely diagnosis of shift work sleep disorder. She wakes up at very early hours and is at work for many people are even awake. She is using Nuvigil to help with her fatigue. She does find it to be very effective. We will continue it based on her positive response. Assessment & Plan (03/14/2021 5:14 PM EST): She is continuing to take the Nuvigil and finds it to be very helpful for her. She does not take it on the weekends when she does not have to work. She only takes half a dose as a whole pill will make her feel jittery. I'm okay with her continuing to take the medication in this manner. Chronic fatigue 03/14/2021 Assessment & Plan (01/04/2024 5:00 PM EDT): Fatigue continues to be one of the main problems that Mrs. Castro experiences. She is aware that Nuvigil can be helpful for this and has requested a refill as she finds it to be very effective. As long as it continues to be effective and she denies any side effects from it we will go ahead and continue the medication. Assessment & Plan (09/02/2022 5:16 PM EDT): Please see the above discussion regarding her shiftwork sleep disorder for a discussion regarding her chronic fatigue, in general. Assessment & Plan (12/09/2021 5:13 PM EDT): Fatigue is the most common symptom for patients with MS to complain of. I do believe there is at least some component of her fatigue that is likely MS related. As discussed below, however, she also has a likely component of shift work sleep disorder. She has gotten good relief from a fatigue standpoint with Nuvigil use. We will continue the Nuvigil given how positively it has impacted her fatigue. Assessment & Plan (03/14/2021 5:15 PM EST): Fatigue is one of the most common symptoms of multiple sclerosis. She also has a component of shift work sleep disorder that we are using Nuvigil for. The Nuvigil would also help with the fatigue associated with multiple sclerosis. As long as she is tolerating the medication well I would recommend she continue taking it. Multiple sclerosis, relapsing-remitting 05/31/19 17 Assessment & Plan (01/04/2024 4:59 PM EDT): Mrs. Castro is doing very well from a multiple sclerosis standpoint. We reviewed her most recent MRIs together in the office today. While she does have lesions along with T1 black holes, none are active and none are new compared to prior studies. Thus, she seems to be doing very well with the ocrelizumab and should continue it. She was encouraged to exercise and stretch on a regular basis. Given that she is doing so well we will continue to obtain MRIs on an every other year basis, sooner if necessary. Assessment & Plan (09/02/2022 5:14 PM EDT): Mrs. Castro continues to do very well from a multiple sclerosis standpoint. She has had no symptoms concerning for flareups or exacerbations of her MS. She is currently receiving Ocrevus every 6 months. She feels she is doing well with the therapy. When last checked there was no change in her MRIs compared to prior studies. She is due for a series of MRIs in the near future. She will be given orders for MRIs of the brain, cervical, and thoracic spine. She was encouraged to remain active and to continue to exercise and stretch on a regular basis. As she is doing well I will have her return for follow-up in 1 year, sooner if necessary. Assessment & Plan (12/09/2021 5:12 PM EDT): Mrs. Castro is doing very well from a multiple sclerosis standpoint. She feels that since she has been on Ocrevus she is doing better than she has in the past. She has experienced no symptoms that are concerning for flareups or exacerbations of her MS. We will continue the Ocrevus given how well she is doing. She is taking her vitamin D regularly. She was encouraged to exercise and stretch on a regular basis as well. Assessment & Plan (03/14/2021 5:14 PM EST): Mrs. Castro seems to be doing relatively well from a multiple sclerosis standpoint, but may have had some symptoms concerning for breakthrough symptoms. She was asked to complete a series of MRIs given it has been quite some time since her last studies. She has been off of any disease modifying drug due to concerns that it would and has exacerbated her shingles in the past. We discussed going to a different medication, which she is hesitant to agree to for this same reason. My recommendation was to try Ocrevus. I will have to speak with my partner who is an MS specialist about the risk of shingles eruption with this medication, however. We have opted to hold off on starting the medication until we know with more certainty that it would be safe to do so. Primary insomnia 01/07/2010 Depression 01/07/2010 Generalized anxiety disorder 01/07/2010 Resolved Problems Problem Noted Date Diagnosed Date Resolved Date Hypothyroid 01/07/2010 07/10/2022 Encounters Date Type Department Care Team Description 10/08/2024 Results Follow-Up [facility] [address], [address] [place] [address] Elver Juan MD PHD PATHOLOGY TISSUE REQUEST 09/29/2024 Refill [facility] Neurology [facility] [address] [place] [address] Moncho Dyer MD Medication Refill (Armodafinil) 09/26/2024 7:57 AM EDT Anesthesia Event [facility] [address] [place] [id number] Dexter Nguyen, Lucie Price, SAP BW DEVELOPER 09/26/2024 7:10 AM EDT - 09/26/2024 11:59 PM EDT Hospital Encounter [facility] [address] [place] [id number] Elver Juan MD PHD Dexter Nguyen, Yojana Jackson CRNA Diarrhea, unspecified type; Generalized abdominal pain; Multiple sclerosis, relapsing-remitting (HCC) Discharge Disposition: Home or Self Care 09/15/2024 Results Follow-Up [facility] [address], [address] [place] [address] Elver Juan MD PHD SEDIMENTATION RATE AUTOMATED, C-REACTIVE PROTEIN 09/15/2024 Travel 09/03/2024 10:34 AM EDT - 09/03/2024 11:59 PM EDT Hospital Encounter [facility] [address] [place] [address] Diarrhea, unspecified type Discharge Disposition: Home or Self Care 08/26/2024 2:25 PM EDT - 08/26/2024 11:59 PM EDT Hospital Encounter [facility] [address] [place] [address] Diarrhea, unspecified type; Generalized abdominal pain Discharge Disposition: Home or Self Care 08/26/2024 Orders Only [facility] [address] [place] [address] Elver Savage MD Diarrhea, unspecified type (Primary Dx) 08/15/2024 Telephone Cancer Care Medical [place] [address] Moncho Dyer MD Medication Management (Ocrevus) 08/15/2024 Telephone [facility] [address], [address] [place] [address] Kelly March, OSCAR Other 08/06/2024 12:15 PM EDT - 08/06/2024 11:59 PM EDT Hospital Encounter [facility] [place] [address] Multiple sclerosis, relapsing-remitting (HCC) Discharge Disposition: Home or Self Care 08/05/2024 Refill [facility] Neurology [facility] [address] [place] [address] Moncho Dyer MD Medication Refill (Armodafinil) 08/02/2024 Results Follow-Up [facility] [address], [address] [place] [address]D [address] ABDOMEN PELVIS W CONTRAST from Last 3 Months Surgical History Surgery Date Site/Laterality Comments CHOLECYSTECTOMY SECTION 12/15/2003 - 01/14/2004 PARTIAL HYSTERECTOMY 05/14/2010 - 06/13/2010 COLONOSCOPY Medical History Medical History Date Comments Hypothyroid MS (multiple sclerosis) (HCC) Anxiety Depression Gall stones Attention-deficit hyperactivity disorder Hyperlipidemia History of colonic polyps Heartburn Irritable bowel syndrome Family History Medical History Relation Name Comments Colon Cancer Father High Blood Pressure Father High Cholesterol Father Hypertension Father Prostate Cancer Father Stroke Father Diabetes Maternal Grandfather High Blood Pressure Maternal Grandfather Hypertension Maternal Grandfather Heart Attack Maternal Grandmother Other Maternal Uncle AFIB Mother Hypotension Mother Kidney Disease Mother Obesity Mother Hypertension Paternal Grandfather Dementia Paternal Grandmother High Blood Pressure Paternal Grandmother Hypertension Paternal Grandmother Depression Sister High Cholesterol Sister Mult Sclerosis Sister Anesth Problems Neg Hx Relation Name Status Comments Father Maternal Grandfather Maternal Grandmother Maternal Uncle Mother Paternal Grandfather Paternal Grandmother Sister Social History Tobacco Use Types Packs/Day Years Used Date Smoking Tobacco: Light Smoker Cigarettes Smokeless Tobacco: Never Tobacco Cessation:Ready to Q uit: Not Asked; Counseling Given: Not Answered Alcohol Use Standard Drinks/Week Comments Yes 0 (1 standard drink = 0.6 oz pur e alcohol) occassioinally Sexually Active Control Partners Comments Yes Comments No Sex and Gender Information Value Date Recorded Sex Assigned at Not on file Legal Sex Female 8:43 AM EDT Gender Identity Not on file Sexual Orientation Not on file Obstetrics History Last Filed Vital Signs Vital Sign Reading [...] Mass Index 37.19 09/26/2024 7:23 AM EDT Plan of Treatment Upcoming Encounters Date Type Department Care Team (Late st Contact Info) Description 01/17/2025 3:40 PM EST Office Visit [facility] Neu[facility] [address] [place] [address] Moncho Dyer MD [address] [place] [address] Health Maintenance Due Date Last Done Comments Annual Wellness Exam 1977 DTaP/TDaP/Td (1 - Tdap) 1993 Hepatitis B Vaccine (1 of 3 - 19+ 3-dose series) 1993 Pneumococcal Vaccine 50+ (1 of 2 - PCV) 1993 Cervical Cancer Screening 09/08/1995 Pap Smear 09/08/1995 HPV/Pap Cotest 2004 Breast Cancer Screening 2014 Cologuard 09/08/2019 FIT 09/08/2019 Sigmoidoscopy 09/08/2019 Virtual Colonography 09/08/2019 COVID-19 Vaccine ( - season) 2023 03/29/2021, 04/19/2020, 03/22/2020 Zoster (2 of 2) 2024 11/01/2019, 08/25/2019 Influenza Vaccine (#1) 2024 4, 12/26/2022, 02/10/2020, Additional history exists Colon Cancer Screening 09/26/2034 Colonoscopy 09/26/2034 09/26/2024 Meningococcal B Vaccine Aged Out No l onger eligible based on patient's age to complete this topic Medical Devices Implanted Type Area Staff Certified Nurse Midwife Device Identifier Shelf Expiration Date Model / Serial / Lot Clip Clip Right: Abdomen Procedures Procedure Name Priority Date/Time Associated Diagnosis Comments COLONOSCOPY Routine 09/26/2024 8:23 AM EDT Diarrhea, unspecified type Generalized abdominal pain Family history of colon cancer in father PATHOLOGY TISSUE REQUEST Routine 09/26/2024 8:12 AM EDT Diarrhea, unspecified type Generalized abdominal pain INTRAOP AIRWAY PLACEMENT Routine 09/26/2024 7:57 AM EDT FECAL CALPROTECTIN Routine 09/03/2024 10 :32 AM EDT Diarrhea, unspecified type C-REACTIVE PROTEIN Routine 08/26/2024 2: 24 PM EDT Diarrhea, unspecified type Generalized abdominal pain SEDIMENTATION RATE AUTOMATED Routine 08/26/2024 2:24 PM EDT Diarrhea, unspecified type Generalized abdominal pain HEPATITIS B SURFACE ANTIBODY Routine 08/06/2024 12:24 PM EDT Multiple sclerosis, relapsing-remitting (HCC) HEPATITIS B CORE AB TOTAL Routine 08/06/2024 12:24 PM EDT Multiple sclerosis, relapsing-remitting (HCC) from Last 3 Months Results * COLONOSCOPY (09/26/2024 8:23 AM EDT) [...] Staff Role Dexter Nguyen DO Anesthesiologist Philip Horton, FELISHA Schedule Supervisor Elver Juan MD PHD Performing Provider JUAN Sorensen CRNA, director nurses' registry Nurse Ruth Dye RN Endoscopy Nurse Medications [...] Patient Out - Proc. Room 08:23 AM us Elver Juan MD PHD ENDOSCOPY PROCEDURE ORDERAB LES Final Result * PATHOLOGY TISSUE REQUEST (09/26/2024 8:12 AM EDT) CASE REPORT Surgical Pathology Case: [id number] Authorizing Provider: Elver Juan MD PHD Collected: 09/26/2024 0812 Ordering Location: [facility] Received: 09/26/2024 09 Pathologist: Stephanie Calhoun MD Specimen: Colon, random colon biopsies via forceps 09/27/2024 8:41 AM EDT [facility] FINAL DIAGNOSIS Random colon, biopsy: - No specific histopathologic abnormalities. - No evidence of microscopic colitis. 09/27/2024 8:41 AM EDT [facility] at 0841 EDT GROSS DESCRIPTION A. Received in formalin and labeled with the patient's name, medical record number, and random colon biopsies are multiple fragments of collier tissue ranging from 0.2 to 0.5 cm in greatest dimension. Entirely submitted in A1. Jerel Odom 09/26/2024 09/27/2024 8:41 AM EDT [facility] MICROSCOPIC DESCRIPTION The microscopic examination may have been rendered in whole, or in part, by analyzing high-resolution digital images (whole slide images) on the [employer] Digital Pathology platform validated at [facility]. 09/27/2024 8:41 AM EDT [facility] EMBEDDED IMAGES 09/27/2024 8:41 AM EDT [facility] Tissue COLON STRUCTURE / Unknown 09/26/2024 8:12 AM EDT 09/26/2024 9:22 AM EDT us Elver Juan MD PHD PATHOLOGY ORDERABLES Final Result [facility] [address] [place] [address] [address] * INTRAOP AIRWAY PLACEMENT (09/26/2024 7:57 AM EDT) Narrative [facility] - 09/26/2024 7:57 AM EDT Yojana Man CRNA 09/26/2024 8:04 AM Intraop Airway Placement: Date/Time: 09/26/2024 7:57 AM Airway type: Nasal cannula salter Placement verified: End tidal CO2 Dexter Nguyen DO AR ANESTHESIA Final Resul t Performing Organization Address [facility] Co de Phone Number [facility] [address] [place] [address] * (ABNORMAL) FECAL CALPROTECTIN (09/03/2024 10:32 AM EDT) Fecal Calprotectin 326(H) <50 ug/g 09/04/2024 11:52 AM EDT [facility] Comment: Normal: <50 ug/g Borderline: 50-120 ug/g Elevated: >120 ug/g Stool RECTUM STRUCTURE / Unknown 09/03/2024 10:32 AM EDT 09/03/2024 10:32 AM EDT Elver De La Torre MD IMMUNOLOGY ORDERABLES Final Result Performing Organization Address [facility] de Phone Number [facility] [address] [place] [address] , [place] [address] * SEDIMENTATION RATE AUTOMATED (08/26/2024 2:24 PM EDT) Pathologist [facility] Sed Rate 7 0 - 20 mm/hr 08/26/2024 8:14 PM EDT [facility] Blood VENOUS BLOOD / Unknown Venipuncture / Unknown 08/26/2024 2:24 PM EDT 08/26/2024 2:24 PM EDT Elver Juan MD PHD HEMATOLOGY ORDERABLES Final Result Performing Organization Address [facility] Co de Phone Number [facility] [address] [place] [address] , [place] [address] * (ABNORMAL) C-REACTIVE PROTEIN (08/26/2024 2:24 PM EDT) [facility] CRP 10.75(H) <=5.00 mg/L 08/26/2024 8:49 PM EDT [facility] Blood VENOUS BLOOD / Unknown Venipuncture / Unknown 08/26/2024 2:24 PM EDT 08/26/2024 2:24 PM EDT Elver Juan MD PHD CHEMISTRY ORDERABLES Final Result Performing Organization Address [facility] de Phone Number [address] , [place] [address] * HEPATITIS B CORE AB TOTAL (08/06/2024 12:24 PM EDT) [facility] Hep B Core Total Non-Reacti ve Non-React juan m 08/06/2024 1:59 PM EDT [facility] Comment:No antibodies to HBc detected. Does not exclude possibility of exposure to HBV. Blood VENOUS BLOOD / Unknown Venipuncture / Unknown 08/06/2024 12:24 PM EDT 08/06/2024 12:24 PM EDT Narrative [facility] - 08/06/2024 1:59 PM EDT Test performed using [employer] electrochemiluminescence immunassay (ECLIA). Moncho Dyer MD IMMUNOLOGY ORDERABLES Final Resu lt Performing Organization Address [facility] de Phone Number [address] , [place] [address] * HEPATITIS B SURFACE ANTIBODY (08/06/2024 12:24 PM EDT) [facility] Hep Bs Ab <3.50 mIU/mL 08/06/2024 1:59 PM EDT [facility] Comment: < 10 mIU/mL - Non-reactive (Result not consistent with protective immunity.) >= 10 mIU/mL - Reactive (Result consistent with protective immunity.) Blood VENOUS BLOOD / Unknown Venipuncture / Unknown 08/06/2024 12:24 PM EDT 08/06/2024 12:24 PM EDT Narrative [facility] - 08/06/2024 1:59 PM EDT Test performed using E[employer] Elecsys electrochemiluminescence immunassay (ECLIA). [facility] Alfred Dyer MD IMMUNOLOGY ORDERABLES Final Resu lt [facility] [address] [facility] , [place] [address] from Last 3 Months Insurance [employer] POS Care Teams Pmp Relationship Specialty Start Date End Date Myles Davis MD [address] [place] [address] [facility] [phone] PCP - General Internal Medicine-Adolescent Medicine 03/29/15 Karen Greer, Clerical Staff Financial Counselor 03/24/24
--- OUTSIDE RECORDS SUMMARY | 2024-10-24 16:23 | XMS_ITS | Patient Health Record ---
Author Organization [facility] Address [address] [place] [address] Care Team Providers Care Food Court Team Member Name Role Phone NO PCP Primary Care Provider Unavailabl e Reason For Referral No Information Immunizations Vaccine Route Administration Date Status Comme nts PPD Aplisol ID Intradermal 10/28/2022 Administered Plan Of Treatment No Information Insurance Providers Payer Name Payer Address Payer Phone Subscriber Number Group Number Insured Name Patient Relationship to Insured Coverage Start Date Coverage End Date [employer] [address] [place] [address] [id number] Sofia Castro Self - patient is the insured
--- OUTSIDE RECORDS SUMMARY | 2024-10-24 16:24 | XMS_ITS | Encounter Summary ---
Author Organization [facility] [place] [address] Care Team Providers Care Hand Bootmaker Name Role Phone Myles Davis MD Primary Care Provider [phone] Karen Greer Clerical Staff Unavailable Encounter Details Date Type Department Care Team (Late st Contact Info) Description 10/08/2024 Results Follow-Up [facility] [address], [address] [place] [address] Elver Juan MD PHD [address] [place] [id number] PATHOLOGY TISSUE REQUEST Social History Tobacco Use Types Packs/Day Years [...] on file documented as of this encounter Progress Notes * Elver Juan MD PHD - 10/08/2024 4:47 PM EDT Random colon biopsies were all normal with no evidence of microscopic or inflammatory colitis. Would recommend trying some different treatment options for IBS, such as rifaximin or Viberzi (provided she still has her gallbladder). Follow up in GI clinic. documented in this encounter Plan of Treatment Upcoming Encounters Date Type Department Care Team (Late st Contact Info) Description 01/17/2025 3:40 PM EST Office Visit [facility] [address] [place] [address] Moncho Dyer MD [address] [place] [address] documented as of this encounter Visit Diagnoses Not on filedocumented in this encounter Care Teams Hand Bootmaker Relationship Specialty Start Date End Date Myles Davis MD [address] [place] [address] PCP - General Internal Medicine-Adolescent Medicine 03/29/15 Karen Greer, Clerical Staff Financial Counselor 03/24/24 documented as of this encounter
--- OUTSIDE RECORDS SUMMARY | 2024-10-24 16:24 | XMS_ITS | Encounter Summary ---
Author Organization [place] [address] Care Team Providers Care Senior Speech Pathologist Name Role Phone Myles Davis MD Primary Care Provider [phone] Karen Greer Clerical Staff Unavailable Encounter Details Date Type Department Care Team (Late st Contact Info) Description 08/26/2024 Orders Only [facility] [address] [facility] [place], [place] [id number] Elver Savage MD [address] [place] [phone] Diarrhea, unspecified type (Primary Dx) Social History Tobacco Use Types Packs/Day Years [...] PM EST Office Visit SEP Neu[facility] [address] [place] [address] Moncho Dyer MD [address] [place] [address] documented as of this encounter Results * (ABNORMAL) FECAL CALPROTECTIN (09/03/2024 10:32 AM EDT) Fecal Calprotectin 326(H) <50 ug/g 09/04/2024 11:52 AM EDT [facility] Comment: Normal: <50 ug/g Borderline: 50-120 ug/g Elevated: >120 ug/g Stool RECTUM STRUCTURE / Unknown 09/03/2024 10:32 AM EDT 09/03/2024 10:32 AM EDT Elver De La Torre MD IMMUNOLOGY ORDERABLES Final Result [facility] [address] [facility] [address] [place] [id number] documented in this encounter Visit Diagnoses Diagnosis Diarrhea, unspecified type- Primary documented in this encounter Care Teams Senior Speech Pathologist Relationship Specialty Start Date End Date Myles Davis MD [address] [place] [address] PCP - General Internal Medicine-Adolescent Medicine 03/29/15 Karen Greer, Clerical Staff Financial Counselor 03/24/24 documented as of this encounter
--- OUTSIDE RECORDS SUMMARY | 2024-10-24 16:24 | XMS_ITS | Encounter Summary ---
Author Organization [place] [address] Care Team Providers Care Data Communications Engineer Name Role Phone Myles Davis MD Primary Care Provider [phone] Karen Greer Clerical Staff Unavailable Encounter Details Date Type Department Care Team (Late st Contact Info) Description 08/02/2024 Results Follow-Up [facility] [address], [address] [place] [address] Elver Juan MD PHD [address] [place] [address] CT ABDOMEN PELVIS W CONTRAST Social History Tobacco Use Types Packs/Day Years [...] Notes * Elver Juan MD PHD - 08/14/2024 11:[address] abdomen and pelvis does not show any particular abnormalities to account for her pain. Will proceed with colonoscopy next. documented in this encounter Plan of Treatment Upcoming Encounters Date Type Department Care Team (Late st Contact Info) Description 01/17/2025 3:40 PM EST Office Visit [facility] Neu[facility] [address] [place] [address] Moncho Dyer MD [address] [place] [address] documented as of this encounter Visit Diagnoses Not on filedocumented in this encounter Care Teams Data Communications Engineer Relationship Specialty Start Date End Date Myles Davis MD [address] [place] [address] PCP - General Internal Medicine-Adolescent Medicine 03/29/15 Karen Greer, Clerical Staff Financial Counselor 03/24/24 documented as of this encounter
--- OUTSIDE RECORDS SUMMARY | 2024-10-24 16:24 | XMS_ITS | Encounter Summary ---
Author Organization [facility] [place] [address] Care Team Providers Care Vice President Of Software Engineering Name Role Phone Myles Davis MD Primary Care Provider [phone] Karen Greer Clerical Staff Unavailable Encounter Details Date Type Department Care Team (Latest Contact Info) Description 09/15/2024 Travel Social History Tobacco Use Types Packs/Day Years [...] EST Office Visit [facility] [address] [place] [address] Moncho Dyer MD [address] [facility] [address] [place] [address] documented as of this encounter Visit Diagnoses Not on filedocumented in this encounter Care Teams Vice President Of Software Engineering Relationship Specialty Start Date End Date Myles Davis MD [address] [place] [address] PCP - General Internal Medicine-Adolescent Medicine 03/29/15 Karen Greer, Clerical Staff Financial Counselor 03/24/24 documented as of this encounter
== END 2024-10-24 23:59 | disposition home or self-care (01) ==
LOC: RAD 16:22
PROVIDERS: PCP Nurse Practitioner Family; Visit Provider Nurse Practitioner Family
DX: Z12.31 Encounter for screening mammogram for malignant neoplasm of breast (principal)
CPT/HCPCS: 77063; 77067